=== PATIENT | male | born 1950 | race Caucasian/White ===

== ENCOUNTER 2025-01-13 09:05 | Inpatient (IN) | payer BC, OTHER ==
[~2025-01-13] VITALS: Ht 185.4 cm; Wt 109.1 kg
[~2025-01-13 09:05] MED LIST: ALPR2TAB2 PO; ATOR20TA50 PO; METF-370 PO
[2025-01-13 09:42] VITALS: PULSE 102; RESP 18; O2SAT 96
[2025-01-13 09:54] LABS: Mean Corpuscular Volume 85.8 fL (80.0-100.0); Nucleated Red Blood Cells % 0.1 %
--- NOTE | 2025-01-13 09:54 | ECG ---
[facility] Test Date: 2025-01-13 Test Time: 09:24:06 Pat Name: ENRIQUETA LEVI Department: ED Room: [facility]6T Gender: M Capacity Planner: CHELITA : 1950 Requested By: JIM RUBIO Order Number: [id number] Reading MD: Jarek Hitchcock Measurements Intervals [place] Rate: 110 P: 0 ND: 0 QRS: 30 QRSD: 82 T: 65 QT: 317 QTc: 429 Interpretive Statements Atrial fibrillation Anterior infarct, old Electronically Signed On 01-16-2025 15:03:38 PDT by Jarek Hitchcock Please click the below link to view image of tracing.
[2025-01-13 09:57] LABS: Hematocrit 51.7 % (41.0-53.0); Hemoglobin 17.8 g/dL (13.5-17.5); Mean Corpuscular Hemoglobin 29.6 pg (28.0-32.0)
[2025-01-13 10:04] LABS: Potassium 4.3 mmol/L (3.5-5.1)
[2025-01-13 10:05] LABS: Anion Gap 9 (5-15); Carbon Dioxide 29 mmol/L (20-31)
[2025-01-13 10:06] LABS: Calcium 10.2 mg/dL (8.7-10.4)
--- NOTE | 2025-01-13 10:09 | DVH ---
CLINICAL HISTORY: CP TECHNIQUE: Single view of the chest was obtained. COMPARISON: None FINDINGS: The heart size and pulmonary vasculature are normal. The lungs are clear. IMPRESSION: NO ACUTE CARDIOPULMONARY PROCESS.
[2025-01-13 10:10] LABS: BUN/Creatinine Ratio 12.3 (10.0-20.0); Blood Urea Nitrogen 14 mg/dL (9-23)
[2025-01-13 10:11] LABS: Chloride 97 mmol/L (98-107); Glucose 374 mg/dL (74-106); Sodium 135 mmol/L (136-145)
--- NOTE | 2025-01-13 10:20 | ED.PDOC ---
HPI Comments 74-year-old male who comes in with chief complaint of chest pain which started this morning. The patient states that his neighbor dropped him off because he is complaining of some pain after he ran out of his pain medications yesterday. He does has a history of pretty significant arthritis. Upon arrival, he states that the chest pain is substernal with no radiation. It is associated with some mild shortness for breath and he states that the pain is about a 5/10. He den ies any fever or chills. Chief Complaint: Chest Pain Time Seen by MD: 09:17 Reviewed Notes: Nurses Notes, Medications, Allergies (No allergies to medications) Allergies: Coded Allergies: NO KNOWN ALLERGIES (Unverified , 01/13/25) Information Source: Patient Mode of Arrival: Ambulatory Severity: Moderate Timing: Hours Duration: Since onset Prehospital treatment: None Location: Substernal Radiation: No Radiation Quality: Squeezing, Pressure Onset: At Rest Cardiac Risk Factors: Diabetes PE Risk Factors: None History of: Similar pain in past Modifying Factors: Nothing Associated Signs and Symptoms: SOB Past Medical History PAST MEDICAL HISTORY: DM, Kidney Stones, Thyroid Surgical History: Tonsillectomy Surgical History (Other): Right chest surgery, right and left hand of surgery, right elbow surgery Family History Family History: Family hx of heart julio cesar, Family hx of stroke Social History Smoker: Non-Smoker Alcohol: Denies ETOH Use Drugs: Denies Drug Use Lives In: Home Constitutional: denies: chills, diaphoresis, fatigue, fever, malaise, sweats, weakness, others EENTM: denies: blurred vision, double vision, ear bleeding, ear discharge, ear drainage, ear pain, ear ringing, eye pain, eye redness, hearing loss, mouth pain, mouth swelling, nasal discharge, nose bleeding, nose congestion, nose pain, photophobia, tearing, throat pain, throat swelling, voice changes, others Respiratory: denies: cough, hemoptysis, orthopnea, SOB at rest, shortness of breath, SOB with excertion, stridor, wheezing, others Cardiovascular: reports: chest pain; denies: dizzy spells, diaphoresis, Dyspnea on exertion, edema, irregular heart beat, left arm pain, lightheadedness, palpitations, PND, syncope, others Gastrointestinal: denies: abdomen distended, abdominal pain, blood streaked bowels, constipated, diarrhea, dysphagia, difficulty swallowing, hematemesis, melena, nausea, poor appetite, poor fluid intake, rectal bleeding, rectal pain, vomiting, others Genitourinary: denies: burning, dysuria, flank pain, frequency, hematuria, incontinence, penile discharge, penile sore, pain, testicle pain, testicle swelling, urgency, others Neurological: denies: dizziness, fainting, headache, left sided numbness, left sided weakness, numbness, paresthesia, pre-existing deficit, right sided numbness, right sided weakness, seizure, speech problems, tingling, tremors, weakness, others Musculoskeletal: denies: back pain, gout, joint pain, joint swelling, muscle pain, muscle stiffness, neck pain, others Integumetry: denies: bruises, change in color, change in hair/nails, dryness, laceration, lesions, lumps, rash, wounds, others Allergic/Immunocompromised: denies: Difficulty Healing, Frequent Infections, Hives, Itching, others Hematologic/Lymphatic: denies: anemia, blood clots, easy bleeding, easy bruising, swollen glands, others Endocrine: denies: excessive hunger, excessive sweating, excessive thirst, excessive urination, flushing, intolerance to cold, intolerance to heat, unexplained weight gain, unexplained weight loss, others Psychiatric: denies: anxiety, bipolar disorder, depression, hopeless, panic disorder, schizophrenia, sleepless, suicidal, others Physical Exam General Appearance: Moderate Distress HEENT: Normal ENT Inspection, Pharynx Normal, TMs Normal Neck: Full Range of Motion, Non-Tender, Normal, Normal Inspection Respiratory: Chest Non-Tender, Lungs Clear, No Accessory Muscle Use, No Respiratory Distress, Normal Breath Sounds Cardiovascular: Irregular, No Edema, No JVD, No Murmur, No Gallop Breast Exam: Deferred Gastrointestinal: No Organomegaly, Non Tender, No Pulsatile Mass, Normal Bowel Sounds, Soft Genitalia: Deferred Pelvic: Deferred Rectal: Deferred Extremities: No calf tenderness, Normal capillary refill, Normal inspection, Normal range of motion, Non-tender, No pedal edema Musculoskeletal : Apperance: Normal Neurologic: Alert, coil taper II-XII nml as Tested, Motor Weakness, Normal Affect, Normal Mood, No Sensory Deficits Cerebellar Function: Normal Reflexes: Normal Skin: Dry, Normal Color, Warm Lymphatic: No Adenopathy EKG EKG : Pulse Rate (adult): 110 [place]: Normal Cardiac Rhythm: Afib Block: None ST: Nonsp Was a procedure done? Was a procedure done?: No CP Differential Dx Differential Diagnosis: Angina, DE, Pulmonary Embolus Differential Diagnosis: CHF Differential Diagnosis: Esophageal reflux/spasm, Pericarditis X-Ray, Labs, Meds, VS Vital Signs Date Time Temp Pulse Resp B/P (MAP) Pulse Ox O2 Delivery O2 Flow Rate FiO2 01/13/25 10:51 92 17 121/85 01/13/25 10:50 98.7 92 18 121/85 (97) 96 98.7 01/13/25 10:37 112 01/13/25 10:20 110 01/13/25 09:42 102 18 96 Room Air* 0 21 01/13/25 09:24 110 01/13/25 09:21 97.4 102 18 130/83 (99) 96 97.4 01/13/25 09:21 97.4 102 18 130/83 96 97.4 Lab Test 01/13/25 10:38 01/13/25 09:40 Range/Units Troponin I High Sensitivity Pending 10 </=54 ng/L White Blood Count 10.8 4.4-10.8 10^3/uL Red Blood Count 6.02 H 4.5-5.90 10^6/uL Hemoglobin 17.8 H 13.5-17.5 g/dL Hematocrit 51.7 41.0-53.0 % Mean Corpuscular Volume 85.8 80.0-100.0 fL Mean Corpuscular Hemoglobin 29.6 28.0-32.0 pg Mean Corpuscular Hemoglobin Concent 34.5 32.0-36.0 g/dL Red Cell Distribution Width 14.2 11.8-14.3 % Platelet Count 211 140-450 10^3/uL Mean Platelet Volume 8.9 6.9-10.8 fL Neutrophils (%) (Auto) 74.6 37.0-80.0 % Lymphocytes (%) (Auto) 17.6 10.0-50.0 % Monocytes (%) (Auto) 6.8 0.0-12.0 % Eosinophils (%) (Auto) 0.6 0.0-7.0 % Basophils (%) (Auto) 0.4 0.0-2.0 % Neutrophils # (Auto) 8.0 1.6-8.6 10 ^3/uL Lymphocytes # (Auto) 1.9 0.4-5.4 10 ^3/uL Monocytes # (Auto) 0.7 0-1.3 10 ^3/uL Eosinophils # (Auto) 0.1 0-0.8 10 ^3/uL Basophils # (Auto) 0 0-0.2 10 ^3/uL Nucleated Red Blood Cells 0.1 % Urine Color Light-yellow Yellow Urine Clarity Clear Clear Urine pH 5.0 5.0-9.0 Urine Specific [place] 1.041 H 1.001-1.035 Urine Protein Negative Negative Urine Ketones Trace Negative Urine Blood Negative Negative /uL Urine Nitrite Negative Negative Urine Bilirubin Negative Negative Urine Urobilinogen Normal Negative mg/dL Urine Leukocyte Esterase Negative Negative /uL Urine RBC 2 0 - 3 /hpf Urine Microscopic WBC < 1 0-3 /HPF Urine Squamous Epithelial Cells Few <5 /hpf Urine Bacteria None seen None Seen /hpf Urine Glucose 4+ H Normal mg/dL Sodium Level 135 L 136-145 mmol/L Potassium Level 4.3 3.5-5.1 mmol/L Chloride Level 97 L 98-107 mmol/L Carbon Dioxide Level 29 20-31 mmol/L Anion Gap 9 5-15 Blood Urea Nitrogen 14 9-23 mg/dL Creatinine 1.14 0.700-1.30 mg/dL Glomerular Filtration Rate Calc 67 >90 mL/min BUN/Creatinine Ratio 12.3 10.0-20.0 Serum Glucose 374 H 74-106 mg/dL Calcium Level 10.2 8.7-10.4 mg/dL Current Medications Medications (Trade) Dose Ordered Sig/[facility] Route Start Time Stop Time Status Last Admin Morphine Sulfate 4 mg ONCE ONCE IV 01/13/25 10:30 01/13/25 10:31 DC 01/13/25 10:51 Ondansetron HCl (Zofran) 4 mg ONCE ONCE IV 01/13/25 10:30 01/13/25 10:31 DC 01/13/25 10:50 Chest XR: IMPRESSION: NO ACUTE CARDIOPULMONARY PROCESS. The patient's CBC is within normal limits. The chemistry panel is within normal limits. The patient's serum glucose is elevated at 374 The urine test is negative for any infection The troponin level is negative The patient is being admitted at this time A cardiology consult will be obtained. Images Reviewed?: Images reviewed and evaluated by me Time of 1ST Reevaluation: 10:19 Reevaluation 1ST: Unchanged Patient Education/Counseling: Diagnosis, Treatment, Prognosis Family Education/Counseling: No Family Present SEPSIS Sepsis Screen Date sepsis recognized/suspect: Jan 13, 2025 Time Sepsis recognized/suspect: 914 Recent Procedure: No On Antibiotic Therapy: No Respiratory Rate >20: No Heart Rate >90: Yes Temp<36 C (96.8 F) or >38.3 C: No SBP <90 or MAP <65 mmHG: No New Acute Mental Status Change: No Is the patient on CPAP, BIPAP,: No Physician Orders Chest Portable (01/13/25 09:34) Heplock Iv (01/13/25 09:34) Licensed Direct Entry Midwife (01/13/25 09:34) Blood Pressure (01/13/25 09:34) Pulse Oximetry (01/13/25 09:34) Troponin-I Hs (01/13/25 10:34) Troponin-I Hs (01/13/25 12:34) Electrocardigram (01/13/25 10:34) Electrocardigram (01/13/25 12:34) Vital Signs Date Time Temp Pulse Resp B/P (MAP) Pulse Ox O2 Delivery O2 Flow Rate FiO2 01/13/25 10:51 92 17 121/85 01/13/25 10:50 98.7 92 18 121/85 (97) 96 98.7 01/13/25 10:37 112 01/13/25 10:20 110 01/13/25 09:42 102 18 96 Room Air* 0 21 01/13/25 09:24 110 01/13/25 09:21 97.4 102 18 130/83 (99) 96 97.4 01/13/25 09:21 97.4 102 18 130/83 96 97.4 Laboratory Tests Test 01/13/25 09:40 White Blood Count 10.8 10^3/uL (4.4-10.8) Medications Medications Dose Ordered Sig/Renetta Route Start Time Stop Time Status Last Admin Dose Admin Morphine Sulfate 4 mg ONCE ONCE IV 01/13/25 10:30 01/13/25 10:31 DC 01/13/25 10:51 Ondansetron HCl 4 mg ONCE ONCE IV 01/13/25 10:30 01/13/25 10:31 DC 01/13/25 10:50 Departure 1 Departure Time of Disposition: 11:17 Impression: Primary Impression: Acute coronary syndrome Disposition: ADMITTED INPATIENT Admit to: Tele Condition: Fair Critical Care Note Critical Care Time?: Yes (55 min-critical care time only) Stability Stability form required: Yes Unstable for transfer: Telemetry monitoring (Telemetry monitoring required), ED Physician Assesment (Clinical assesment) Heart Score Heart Score: Heart Score Response (Comments) Value History Moderate Suspicious [address]-Deviation 2 Age >65 2 Risk Factors >3 or Hx ASHD 2 Troponin Normal limit 0 Total 7 I personally scribed for JIM RUBIO MD ([email or web address]) on 01/13/25 at 11:13. Electronically submitted by Kasey Grover ([email or web address]). JIM RUBIO MD Jan 13, 2025 10:20
[2025-01-13 10:34] LABS: Urine Protein, UAD Negative (Negative)
[2025-01-13] MEDS: ONDANSETRON HCL 4 MG/2 ML VIAL IV ONE (10:50)
[2025-01-13] MEDS: MORPHINE SULFATE 4 MG/ML SYR/VIAL IV ONE (10:51)
[2025-01-13] MEDS ORDERED: DEXTROSE (50%) 50ML SYRG IV PRN (14:30)
[2025-01-13] MEDS ORDERED: HYDROcodone-ACET 5/325MG TAB PO PRN (14:30)
--- NOTE | 2025-01-13 14:37 | DVHHP2 ---
History of Present Illness Reason for Visit: Chest pain History of Present Illness 74-year-old male who came in with chief complaint of chest pain starting this morning. Patient states his neighbor dropped him off because he was complaining of pain after running out of pain medications yesterday. Had a lengthy discussion with patient about his history Patient has history of severe left knee arthritis, irregular heart rhythm ( patient was never officially told what it was, but he has been told sometimes it is there and sometimes it is not) patient had stress test 1-2 years ago and it was normal per patient, also reports history of diabetes type 2, patient declined the metformin that his primary care provider had placed him on, he was taking Farxiga only. Patient was also placed on atorvastatin but he declined that medication as well after he did research on the medications. Patient states that the chest pain does make him feel a little short of breath. We are admitting patient to telemetry to monitor and treat, ER would like cardiology consult. Past Medical History DM, Kidney Stones, Thyroid Past Surgical History Right chest surgery, right and left hand of surgery, right elbow surgery Family History Family hx of heart julio cesar, Family hx of stroke Smoke: No ALCOHOL: none Drugs: None Lives: Alone Review of Systems Constitutional: No: Fever, Chills, Sweats, Weakness, Malaise, Other Eyes: No: Pain, Vision change, Conjunctivae inflammation, Eyelid inflammation, Other, Redness ENT: No: Ear pain, Ear discharge, Nose pain, Nose discharge, Nose congestion, Mouth pain, Mouth swelling, Throat pain, Throat swelling, Other Respiratory: Shortness of breath; No: Cough, Dry, SOB with excertion, Wheezing, Hemoptysis, Pleuritic Pain, Sputum, Wheezing, Other Cardiovascular: Chest Pain; No: Palpitations, Orthopnea, Paroxysmal Noc. Dys pnea, Edema, Lt Headedness, Other Gastrointestinal: No: Nausea, Vomiting, Abdominal Pain, Diarrhea, Constipation, Melena, Hematochezia, Other Genitourinary: No Dysuria, No Frequency, No Incontinence, No Hematuria, No Retention, No Other Musculoskeletal: No: other, neck pain, shoulder pain, arm pain, back pain, hand pain, leg pain, foot pain Skin: No: Rash, Lesions, Jaundice, Bruising, Other Neurological: No: Weakness, Numbness, Incoordination, Change in speech, Confusion, Seizures, Other Allergies: Coded Allergies: NO KNOWN ALLERGIES (Unverified , 01/13/25) Medications Current Medications Medications Dose Ordered Sig/Renetta Route Start Time Stop Time Status Last Admin Dose Admin Acetaminophen/ Hydrocodone Bitart 1 tab Q4HP PRN PO 01/13/25 14:30 UNV Ondansetron HCl 4 mg Q4HP PRN IV 01/13/25 14:30 UNV Docusate Sodium 100 mg BIDPRN PRN PO 01/13/25 14:30 UNV Alprazolam 0.25 mg Q12HP PRN PO 01/13/25 14:30 UNV Diagnostic Test (Pha) 1 strip ACHS 01/13/25 17:00 UNV Insulin Human Regular HS SC 01/13/25 22:00 UNV Insulin Human Regular AC SC 01/13/25 17:00 UNV Dextrose 50 ml UD PRN IV 01/13/25 14:30 UNV Exam Vital Signs Vital Signs Date Time Temp Pulse Resp B/P (MAP) Pulse Ox O2 Delivery O2 Flow Rate FiO2 01/13/25 13:53 87 16 129/90 (103) 96 01/13/25 10:50 98.7 98.7 01/13/25 09:42 Room Air* 0 21 General Appearance: Alert, Oriented X3, Cooperative, mild distress HEENT: Atraumatic, PERRLA, Mucous membr. moist/pink Respiratory: Clear to auscultation, Normal air movement Cardiovascular: Regular rate, Normal S1, Normal S2, No murmurs Abdominal: Normal bowel sounds, Soft, No tenderness, No hepatospenomegaly, No masses Extremities: No clubbing, No cyanosis, No edema, Normal pulses, No tenderness/swelling Skin: No rashes, No breakdown, No significant lesion Neuro: Normal gait, Normal speech, Strength at 5/5 X4 ext, Normal tone, Sensation intact, Cranial nerves 3-12 NL, Reflexes 2+ Psych/Mental Status: Mental status NL, Mood NL Labs/Xrays Reviewed Labs Test 01/13/25 13:07 01/13/25 09:40 Range/Units Troponin I High Sensitivity 8 </=54 ng/L White Blood Count 10.8 4.4-10.8 10^3/uL Red Blood Count 6.02 H 4.5-5.90 10^6/uL Hemoglobin 17.8 H 13.5-17.5 g/dL Hematocrit 51.7 41.0-53.0 % Mean Corpuscular Volume 85.8 80.0-100.0 fL Mean Corpuscular Hemoglobin 29.6 28.0-32.0 pg Mean Corpuscular Hemoglobin Concent 34.5 32.0-36.0 g/dL Red Cell Distribution Width 14.2 11.8-14.3 % Platelet Count 211 140-450 10^3/uL Mean Platelet Volume 8.9 6.9-10.8 fL Neutrophils (%) (Auto) 74.6 37.0-80.0 % Lymphocytes (%) (Auto) 17.6 10.0-50.0 % Monocytes (%) (Auto) 6.8 0.0-12.0 % Eosinophils (%) (Auto) 0.6 0.0-7.0 % Basophils (%) (Auto) 0.4 0.0-2.0 % Neutrophils # (Auto) 8.0 1.6-8.6 10 ^3/uL Lymphocytes # (Auto) 1.9 0.4-5.4 10 ^3/uL Monocytes # (Auto) 0.7 0-1.3 10 ^3/uL Eosinophils # (Auto) 0.1 0-0.8 10 ^3/uL Basophils # (Auto) 0 0-0.2 10 ^3/uL Nucleated Red Blood Cells 0.1 % Urine Color Light-yellow Yellow Urine Clarity Clear Clear Urine pH 5.0 5.0-9.0 Urine Specific [place] 1.041 H 1.001-1.035 Urine Protein Negative Negative Urine Ketones Trace Negative Urine Blood Negative Negative /uL Urine Nitrite Negative Negative Urine Bilirubin Negative Negative Urine Urobilinogen Normal Negative mg/dL Urine Leukocyte Esterase Negative Negative /uL Urine RBC 2 0 - 3 /hpf Urine Microscopic WBC < 1 0-3 /HPF Urine Squamous Epithelial Cells Few <5 /hpf Urine Bacteria None seen None Seen /hpf Urine Glucose 4+ H Normal mg/dL Sodium Level 135 L 136-145 mmol/L Potassium Level 4.3 3.5-5.1 mmol/L Chloride Level 97 L 98-107 mmol/L Carbon Dioxide Level 29 20-31 mmol/L Anion Gap 9 5-15 Blood Urea Nitrogen 14 9-23 mg/dL Creatinine 1.14 0.700-1.30 mg/dL Glomerular Filtration Rate Calc 67 >90 mL/min BUN/Creatinine Ratio 12.3 10.0-20.0 Serum Glucose 374 H 74-106 mg/dL Calcium Level 10.2 8.7-10.4 mg/dL SEPSIS Sepsis Screen Date sepsis recognized/suspect: Jan 13, 2025 Time Sepsis recognized/suspect: 914 Recent Procedure: No On Antibiotic Therapy: No Respiratory Rate >20: No Heart Rate >90: Yes Temp<36 C (96.8 F) or >38.3 C: No SBP <90 or MAP <65 mmHG: No New Acute Mental Status Change: No Is the patient on CPAP, BIPAP,: No Physician Orders Chest Portable (01/13/25 09:34) Heplock Iv (01/13/25 09:34) Geographic Information System Analyst (01/13/25 09:34) Blood Pressure (01/13/25 09:34) Pulse Oximetry (01/13/25 09:34) Electrocardigram (01/13/25 10:34) Electrocardigram (01/13/25 12:34) Hemoglobin A1c (01/13/25 14:18) Admit (01/13/25 14:18) Allergies (01/13/25 14:18) Code Status (01/13/25 14:18) Hydrocodone-Acet 5/325mg Tab (Arnett 5/32 (01/13/25 14:30) Docusate Sodium Capsule (Colace Capsule) (01/13/25 14:30) Complete Blood Count (01/14/25 04:00) Comprehensive Metabolic Panel (01/14/25 04:00) Cardiac Diet-2gna,Lofat,Lochol (01/13/25 Dinner) Condition: Fair (01/13/25 14:18) BRP (01/13/25 14:18) Alprazolam Tablet (Xanax Tablet) (01/13/25 14:30) Glucose Blood (Accu-Chek Comfort Curve T (01/13/25 17:00) Insulin R (Human) (Insulin R) (01/13/25 22:00) Insulin R (Human) (Insulin R) (01/13/25 17:00) Dextrose 50% Syringe (01/13/25 14:30) Ondansetron Hcl (Zofran) (01/13/25 14:30) Vital Signs Date Time Temp Pulse Resp B/P (MAP) Pulse Ox O2 Delivery O2 Flow Rate FiO2 01/13/25 13:53 87 16 129/90 (103) 96 01/13/25 11:54 95 16 128/83 (98) 95 01/13/25 11:39 92 17 121/85 01/13/25 10:51 92 17 121/85 01/13/25 10:50 98.7 92 18 121/85 (97) 96 98.7 01/13/25 10:37 112 01/13/25 10:20 110 01/13/25 09:42 102 18 96 Room Air* 0 21 01/13/25 09:24 110 01/13/25 09:21 97.4 102 18 130/83 (99) 96 97.4 01/13/25 09:21 97.4 102 18 130/83 96 97.4 Laboratory Tests Test 01/13/25 09:40 White Blood Count 10.8 10^3/uL (4.4-10.8) Medications Medications Dose Ordered Sig/Renetta Route Start Time Stop Time Status Last Admin Dose Admin Morphine Sulfate 4 mg ONCE ONCE IV 01/13/25 10:30 01/13/25 10:31 DC 01/13/25 10:51 4 MG Ondansetron HCl 4 mg ONCE ONCE IV 01/13/25 10:30 01/13/25 10:31 DC 01/13/25 10:50 4 MG Assessment/Plan Assessment/Plan ACS ACS protocol Admit to ekg monitor overnight Consult cardiology Cardiac diet Pain medication p.r.n. Nausea medication p.r.n. DM type 2 Insulin sliding scale moderate Accu-Cheks a.c. HS PPX VTE prophylaxis not indicated GI prophylaxis not indicated Plan discussed with: Patient My Orders Orders - MARY PANDEY STORE PROMOTER Procedure Category Date Status Time Hemoglobin A1c LAB 01/13/25 Logged 14:18 Admit ADMIT 01/13/25 Transmitted 14:18 Allergies [place] 01/13/25 In Process 14:18 Code Status CODE 01/13/25 Transmitted 14:18 Hydrocodone-Acet PHA 01/13/25 Logged 5/325mg Tab (Arnett 14:30 Docusate Sodium PHA 01/13/25 Logged Capsule (Colace 14:30 Complete Blood Count LAB 01/14/25 Verified 04:00 Comprehensive LAB 01/14/25 Verified Metabolic Panel 04:00 Cardiac DIET 01/13/25 Transmitted Diet-2gna,Lofat,Lochol Dinner Condition: Fair [place] 01/13/25 In Process 14:18 BRP [place] 01/13/25 In Process 14:18 Alprazolam Tablet PHA 01/13/25 Logged (Xanax Tablet) 14:30 Glucose Blood PHA 01/13/25 Logged (Accu-Chek Comfort 17:00 Insulin R (Human) PHA 01/13/25 Logged (Insulin R) 22:00 Insulin R (Human) PHA 01/13/25 Logged (Insulin R) 17:00 Dextrose 50% Syringe PHA 01/13/25 Logged 14:30 Ondansetron Hcl PHA 01/13/25 Logged (Zofran) 14:30 Date of Service: Jan 13, 2025 Billing Provider: MARY PANDEY Common Visit Codes: [id number] INP/OBS CARE (HIGH) MARY PANDEY Jan 13, 2025 14:37
[2025-01-13] MEDS: ACCU-CHEK COMFORT CURVE STRIP VI SCH (17:40)
[2025-01-13] MEDS: InsuLIN REG 1unit/0.01ml Soln (100units/ml) SC SCH ×2 (17:41→22:56)
[2025-01-13] MEDS: MORPHINE SULFATE INJ 2 MG/ml SYRG IV PRN (18:25)
[2025-01-13] MEDS: ONDANSETRON HCL 4 MG/2 ML VIAL IV PRN (18:25)
[2025-01-13 22:12] VITALS: BP 131/93; PULSE 88; RESP 18; TEMP 97; O2SAT 95
[2025-01-13] MEDS ORDERED: OXY5T PO (23:09)
[2025-01-13] MEDS ORDERED: DAPA1TAB4 PO (23:10)
[2025-01-14] VITALS (9 sets, daily range): BP systolic 101–115; BP diastolic 60–82; PULSE 74–90; RESP 16–20; TEMP 96.3–98; O2SAT 95–98
[2025-01-14] MEDS: ALPRAZolam 0.25 MG TAB PO PRN (00:28)
[2025-01-14 07:36] LABS: Hematocrit 48.2 % (41.0-53.0); Hemoglobin 16.7 g/dL (13.5-17.5); Mean Corpuscular Hemoglobin 29.7 pg (28.0-32.0); Mean Corpuscular Volume 85.7 fL (80.0-100.0); Nucleated Red Blood Cells % 0.1 %
[2025-01-14 07:55] LABS: Alanine Aminotransferase 22 U/L (7-40); Albumin 3.9 g/dL (3.2-4.8); Alkaline Phosphatase 67 U/L (46-116); Anion Gap 6 (5-15); BUN/Creatinine Ratio 15.5 (10.0-20.0); Blood Urea Nitrogen 15 mg/dL (9-23); Calcium 9.2 mg/dL (8.7-10.4); Chloride 102 mmol/L (98-107); Glucose 102 mg/dL (74-106); Potassium 4.5 mmol/L (3.5-5.1); Sodium 140 mmol/L (136-145); Total Protein 6.9 g/dL (5.7-8.2)
[2025-01-14 07:56] LABS: Bilirubin, Total 0.9 mg/dL (0.2-1.0)
[2025-01-14 07:59] LABS: Carbon Dioxide 32 mmol/L (20-31)
--- NOTE | 2025-01-14 10:33 | ECG ---
[facility] Test Date: 2025-01-13 Test Time: 10:37:05 Pat Name: ENRIQUETA LEVI Department: Room: [facility]6T A Gender: M Testing Coordinator: RINKU : 1950 Requested By: JIM RUBIO Order Number: [id number] Reading MD: Jarek Hitchcock Measurements Intervals [place] Rate: 112 P: 0 [place]: 0 QRS: 0 QRSD: 81 T: 46 QT: 318 QTc: 434 Interpretive Statements Atrial fibrillation Anterior infarct, old Electronically Signed On 01-16-2025 15:03:44 PDT by Jarek Hitchcock Please click the below link to view image of tracing.
--- NOTE | 2025-01-14 18:38 | DVHPN2 ---
Subjective I am assuming the care of the patient was from today onwards. Patient is here for generalized body pain has been as chest pain. Patient says that he ran out of physical oxycodone few days ago Changes from previous H/P or p: No Changes Eyes: No Pain, No Vision change, No Conjunctivae inflammation, No Eyelid inflammation, No Other, No Redness ENT: No Ear pain, No Ear discharge, No Nose pain, No Nose discharge, No Nose congestion, No Mouth pain, No Mouth swelling, No Throat pain, No Throat swelling, No Other Cardiovascular: Chest Pain; No Palpitations, No Orthopnea, No Paroxysmal Noc. Dyspnea, No Edema, No Lt Headedness, No Other Respiratory: No Cough, No Dry; Shortness of breath; No SOB with excertion, No Wheezing, No Hemoptysis, No Pleuritic Pain, No Sputum, No Other Gastrointestinal: No Nausea, No Vomiting, No Abdominal Pain, No Diarrhea, No Constipation, No Melena, No Hematochezia, No Other Genitourinary: No Dysuria, No Frequency, No Incontinence, No Hematuria, No Retention, No Other Musculoskeletal: No other, No neck pain, No shoulder pain, No arm pain, No back pain, No hand pain, No leg pain, No foot pain Skin: No Rash, No Lesions, No Jaundice, No Bruising, No Other Objective Vitals Vital Signs Date Time Temp Pulse Resp B/P (MAP) Pulse Ox O2 Delivery O2 Flow Rate FiO2 01/14/25 16:35 97.5 77 18 104/78 (87) 95 97.5 01/14/25 08:00 Room Air* 0 21 Intake/Output Intake and Output 01/14/25 07:00 Intake Total 100 ml Balance 100 ml Intake Oral 100 ml # Voids 1 Exam HEENT pupils are reactive Neck is supple CV is S1-S2 regular rate and rhythm Respiratory are clear GI posterior bowel sound Extremity no edema 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 Medications Current Medications Medications Dose Ordered Sig/Renetta Route Start Time Stop Time Status Last Admin Dose Admin Ondansetron HCl 4 mg Q4HP PRN IV 01/13/25 14:30 01/14/25 09:57 4 MG Docusate Sodium 100 mg BIDPRN PRN PO 01/13/25 14:30 Alprazolam 0.25 mg Q12HP PRN PO 01/13/25 14:30 01/14/25 00:28 0.25 MG Diagnostic Test (Pha) 1 strip ACHS 01/13/25 17:00 01/14/25 16:13 1 STRIP Insulin Human Regular HS SC 01/13/25 22:00 01/13/25 22:56 6 UNITS Insulin Human Regular AC SC 01/13/25 17:00 01/14/25 17:00 9 UNITS Dextrose 50 ml UD PRN IV 01/13/25 14:30 Morphine Sulfate 2 mg Q4HPRN PRN IV 01/13/25 16:30 01/14/25 14:49 2 MG Oxycodone HCl 30 mg Q12HR PO 01/14/25 22:00 Laboratory Results Laboratory Tests 01/14/25 07:11 Chemistry Test 01/14/25 07:11 Albumin 3.9 g/dL (3.2-4.8) Calcium Level 9.2 mg/dL (8.7-10.4) Total Protein 6.9 g/dL (5.7-8.2) LFT Test 01/14/25 07:11 Alanine Aminotransferase (ALT) 22 U/L (7-40) Alkaline Phosphatase 67 U/L (46-116) Aspartate Amino Transferase (AST) 19 U/L (13-40) Total Bilirubin 0.9 mg/dL (0.2-1.0) Urinalysis Test 01/13/25 09:40 Urine Color Light-yellow (Yellow) Urine Clarity Clear (Clear) Urine pH 5.0 (5.0-9.0) Urine Specific [place] 1.041 (1.001-1.035) Urine Protein Negative (Negative) Urine Ketones Trace (Negative) Urine Blood Negative /uL (Negative) Urine Nitrite Negative (Negative) Urine Bilirubin Negative (Negative) Urine Urobilinogen Normal mg/dL (Negative) Urine Leukocyte Esterase Negative /uL (Negative) Urine RBC 2 /hpf (0 - 3) Urine Microscopic WBC < 1 /HPF (0-3) Urine Squamous Epithelial Cells Few /hpf (<5) Urine Bacteria None seen /hpf (None Seen) Urine Glucose 4+ mg/dL (Normal) H Assessment/Plan Assessment/Plan 74-year-old male with a known history of chronic pain syndrome, generalized osteoarthritis of the multiple joints, anxiety disorder, diabetes mellitus type 2 he is here for chest pain and generalized body pain. 1. Chest pain rule out acute [place] 2. Generalized body pain with a known history of chronic pain syndrome 3. Chronic narcotic dependency 4. Anxiety disorder 5. Diabetes mellitus type 2 -resume oxycodone, close monitoring on telemetry, discharge plan. Plan discussed with: Patient My Orders Orders - LUIS PETERSON MD Procedure Category Date Status Time Pt Request For Service PT 01/14/25 Logged 15:09 Oxycodone Er Tablet PHA 01/14/25 In Process (Oxycontin Er Tablet 22:00 Date of Service: Jan 14, 2025 Billing Provider: LUIS PETERSON MD Common Visit Codes: [id number] INP/OBS CARE(MOD) LUIS PETERSON MD Jan 14, 2025 18:38
[2025-01-15] VITALS (10 sets, daily range): BP systolic 101–141; BP diastolic 67–92; PULSE 14–98; RESP 14–18; TEMP 97.6–98.1; O2SAT 95–98
[2025-01-15] MEDS: DOCUSATE SOD 100 MG CAP PO PRN (09:08)
--- NOTE | 2025-01-15 16:47 | DVHPN2 ---
Subjective Patient is here for generalized body pain has been as chest pain. Patient says that he ran out of oxycodone few days ago. Changes from previous H/P or p: No Changes Eyes: No Pain, No Vision change, No Conjunctivae inflammation, No Eyelid inflammation, No Other, No Redness ENT: No Ear pain, No Ear discharge, No Nose pain, No Nose discharge, No Nose congestion, No Mouth pain, No Mouth swelling, No Throat pain, No Throat swelling, No Other Cardiovascular: Chest Pain; No Palpitations, No Orthopnea, No Paroxysmal Noc. Dyspnea, No Edema, No Lt Headedness, No Other Respiratory: No Cough, No Dry; Shortness of breath; No SOB with excertion, No Wheezing, No Hemoptysis, No Pleuritic Pain, No Sputum, No Other Gastrointestinal: No Nausea, No Vomiting, No Abdominal Pain, No Diarrhea, No Constipation, No Melena, No Hematochezia, No Other Genitourinary: No Dysuria, No Frequency, No Incontinence, No Hematuria, No Retention, No Other Musculoskeletal: No other, No neck pain, No shoulder pain, No arm pain, No back pain, No hand pain, No leg pain, No foot pain Skin: No Rash, No Lesions, No Jaundice, No Bruising, No Other Objective Vitals Vital Signs Date Time Temp Pulse Resp B/P (MAP) Pulse Ox O2 Delivery O2 Flow Rate FiO2 01/15/25 16:41 98.1 81 16 125/92 (103) 97 98.1 01/15/25 08:00 Room Air* 0 21 Intake/Output Intake and Output 01/15/25 07:00 Intake Total 1534 ml Balance 1534 ml Intake Oral 1534 ml # Voids 3 Exam HEENT pupils are reactive Neck is supple CV is S1-S2 regular rate and rhythm Respiratory are clear GI posterior bowel sound Extremity no edema 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 Medications Current Medications Medications Dose Ordered Sig/Renetta Route Start Time Stop Time Status Last Admin Dose Admin Ondansetron HCl 4 mg Q4HP PRN IV 01/13/25 14:30 01/15/25 16:05 4 MG Docusate Sodium 100 mg BIDPRN PRN PO 01/13/25 14:30 01/15/25 09:08 100 MG Alprazolam 0.25 mg Q12HP PRN PO 01/13/25 14:30 01/15/25 02:45 0.25 MG Diagnostic Test (Pha) 1 strip ACHS 01/13/25 17:00 01/15/25 16:19 1 STRIP Insulin Human Regular HS SC 01/13/25 22:00 01/14/25 23:10 3 UNITS Insulin Human Regular AC SC 01/13/25 17:00 01/15/25 16:33 6 UNITS Dextrose 50 ml UD PRN IV 01/13/25 14:30 Morphine Sulfate 2 mg Q4HPRN PRN IV 01/13/25 16:30 01/15/25 16:06 2 MG Oxycodone HCl 30 mg Q12HR PO 01/14/25 22:00 01/15/25 09:13 30 MG Laboratory Results Laboratory Tests 01/14/25 07:11 Urinalysis Test 01/13/25 09:40 Urine Color Light-yellow (Yellow) Urine Clarity Clear (Clear) Urine pH 5.0 (5.0-9.0) Urine Specific [place] 1.041 (1.001-1.035) Urine Protein Negative (Negative) Urine Ketones Trace (Negative) Urine Blood Negative /uL (Negative) Urine Nitrite Negative (Negative) Urine Bilirubin Negative (Negative) Urine Urobilinogen Normal mg/dL (Negative) Urine Leukocyte Esterase Negative /uL (Negative) Urine RBC 2 /hpf (0 - 3) Urine Microscopic WBC < 1 /HPF (0-3) Urine Squamous Epithelial Cells Few /hpf (<5) Urine Bacteria None seen /hpf (None Seen) Urine Glucose 4+ mg/dL (Normal) H Assessment/Plan Assessment/Plan 74-year-old male with a known history of chronic pain syndrome, generalized osteoarthritis of the multiple joints, anxiety disorder, diabetes mellitus type 2 he is here for chest pain and generalized body pain. 1. Chest pain ruled out acute [place] 2. Generalized body pain with a known history of chronic pain syndrome 3. Chronic narcotic dependency 4. Anxiety disorder 5. Diabetes mellitus type 2 -resume oxycodone, close monitoring on telemetry, discharge plan. Plan discussed with: Patient Date of Service: Jan 15, 2025 Billing Provider: LUIS PETERSON MD Common Visit Codes: [id number] INP/OBS CARE(MOD) LUIS PETERSON MD Jan 15, 2025 16:47
[2025-01-16] VITALS (7 sets, daily range): BP systolic 114–133; BP diastolic 81–86; PULSE 81–98; RESP 16–18; TEMP 97.6–98.3; O2SAT 95–98
[2025-01-16] MEDS ORDERED: OXY20CRT PO (16:20)
--- NOTE | 2025-01-16 16:25 | DVHDS2 ---
Discharge Summary Date of Admission Jan 13, 2025 at 14:18 Date of Discharge: Jan 16, 2025 Labs/Diagnostic Data: Laboratory Results Test 01/16/25 12:13 01/14/25 07:11 01/13/25 13:07 01/13/25 09:40 POC Glucose 240 mg/dl (70-106) White Blood Count 10.4 10^3/uL (4.4-10.8) Red Blood Count 5.63 10^6/uL (4.5-5.90) Hemoglobin 16.7 g/dL (13.5-17.5) Hematocrit 48.2 % (41.0-53.0) Mean Corpuscular Volume 85.7 fL (80.0-100.0) Mean Corpuscular Hemoglobin 29.7 pg (28.0-32.0) Mean Corpuscular Hemoglobin Concent 34.6 g/dL (32.0-36.0) Red Cell Distribution Width 14.3 % (11.8-14.3) Platelet Count 187 10^3/uL (140-450) Mean Platelet Volume 8.4 fL (6.9-10.8) Neutrophils (%) (Auto) 63.1 % (37.0-80.0) Lymphocytes (%) (Auto) 24.8 % (10.0-50.0) Monocytes (%) (Auto) 9.8 % (0.0-12.0) Eosinophils (%) (Auto) 1.9 % (0.0-7.0) Basophils (%) (Auto) 0.4 % (0.0-2.0) Neutrophils # (Auto) 6.5 10 ^3/uL (1.6-8.6) Lymphocytes # (Auto) 2.6 10 ^3/uL (0.4-5.4) Monocytes # (Auto) 1.0 10 ^3/uL (0-1.3) Eosinophils # (Auto) 0.2 10 ^3/uL (0-0.8) Basophils # (Auto) 0 10 ^3/uL (0-0.2) Nucleated Red Blood Cells 0.1 % Sodium Level 140 mmol/L (136-145) Potassium Level 4.5 mmol/L (3.5-5.1) Chloride Level 102 mmol/L (98-107) Carbon Dioxide Level 32 mmol/L (20-31) Anion Gap 6 (5-15) Blood Urea Nitrogen 15 mg/dL (9-23) Creatinine 0.97 mg/dL (0.700-1.30) Glomerular Filtration Rate Calc 81 mL/min (>90) BUN/Creatinine Ratio 15.5 (10.0-20.0) Serum Glucose 102 mg/dL (74-106) Calcium Level 9.2 mg/dL (8.7-10.4) Total Bilirubin 0.9 mg/dL (0.2-1.0) Aspartate Amino Transferase (AST) 19 U/L (13-40) Alanine Aminotransferase (ALT) 22 U/L (7-40) Alkaline Phosphatase 67 U/L (46-116) Total Protein 6.9 g/dL (5.7-8.2) Albumin 3.9 g/dL (3.2-4.8) Troponin I High Sensitivity 8 ng/L (</=54) Urine Color Light-yellow (Yellow) Urine Clarity Clear (Clear) Urine pH 5.0 (5.0-9.0) Urine Specific [place] 1.041 (1.001-1.035) Urine Protein Negative (Negative) Urine Ketones Trace (Negative) Urine Blood Negative /uL (Negative) Urine Nitrite Negative (Negative) Urine Bilirubin Negative (Negative) Urine Urobilinogen Normal mg/dL (Negative) Urine Leukocyte Esterase Negative /uL (Negative) Urine RBC 2 /hpf (0 - 3) Urine Microscopic WBC < 1 /HPF (0-3) Urine Squamous Epithelial Cells Few /hpf (<5) Urine Bacteria None seen /hpf (None Seen) Urine Glucose 4+ mg/dL (Normal) Hemoglobin A1c 12.8 % A1C (<5.7) Other Laboratory Tests 01/14/25 07:11 Brief Hx & Hospital Course: 74-year-old male with a known history of chronic pain syndrome, chronic narcotic dependency currently taking oxycodone 30 mg t.i.d., generalized osteoarthritis of the multiple joints, anxiety disorder, diabetes mellitus type 2 he is here for chest pain and generalized body pain. Patient was eventually admitted for pain management. Patient's troponins are negative, ruled out acute [place]. patient possibly chest pain is costochondritis and also have generalized body pain secondary to chronic osteoarthritis of the multiple joints. Patient was given oxycodone currently pain is better controlled and he is requesting to go home. I gave him a prescription of 14 tablets only of oxycodone 20 mg b.i.d. p.r.n.. Patient needs to call his primary physician as well as hand paint mixer for the more prescription. Patient does have chronic narcotic dependency need to be tapered off outpatient with the PCP. No driving, no signing legal documents, no playing on machinery while on narcotics. Condition at Discharge: Stable Final Diagnosis/Problems List 74-year-old male with a known history of chronic pain syndrome, generalized osteoarthritis of the multiple joints, anxiety disorder, diabetes mellitus type 2 he is here for chest pain and generalized body pain. 1. Chest pain ruled out acute [place] 2. Generalized body pain with a known history of chronic pain syndrome 3. Chronic narcotic dependency 4. Anxiety disorder 5. Diabetes mellitus type 2 Discharge Disposition: Home SNF Discharge Will this Physician continue t: No Discharge Instruct/Medications Diet: Cardiac 2g Na,low cholest Activity: See Comment Activity comment: No driving, no playing on machinery, no signing legal documents while on narcotics. Follow Up/Referral: Follow up with the PCP in 1-2 weeks Follow up with the your hand paint mixer in less than one week. Medications: Oxycodone as prescribed. 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, #2 SPRAY Oxycodone Hcl (OxyCONTIN ER Tablet) 20 Mg Tb 1 TAB PO BID PRN, #14 TAB Continued Medications: Alprazolam (Xanax) 2 Mg Tab 2 MG PO, TAB Dapagliflozin Propanediol (Farxiga) 10 Mg Tab 5 MG PO DAILY, TAB Discontinued Medications: Oxycodone Hcl (Oxycodone Hcl) 5 Mg Tb 30 MG PO, TAB Scheduled Dapagliflozin Propanediol (Farxiga), 5 MG PO DAILY, (Reported) Naloxone HCl (Narcan), 4 MG NA SENIOR NETWORK ENGINEER Scheduled PRN Oxycodone Hcl (OxyCONTIN ER Tablet), 1 TAB PO BID PRN Miscellaneous Medications Alprazolam (Xanax), 2 MG PO, (Reported) Oxycodone Hcl (Oxycodone Hcl), 30 MG PO, (Reported) Discharge Statement: "Patient was advised to return to the ER or call 911 if any headaches, dizziness, shortness of breath, chest pain, abdominal pain, bleeding, fevers, or worsening of medical condition. Patient was counseled about treatment plan, medications, possible side effects, patientverbalized understanding. All questions were answered to the best of my ability. This discharge took greater then 30 minutes in planning, reviewing documentation, counseling the patient, and discussing with other team members." ASSESSMENT ASSESSMENT Assessment 74-year-old male with a known history of chronic pain syndrome, generalized osteoarthritis of the multiple joints, anxiety disorder, diabetes mellitus type 2 he is here for chest pain and generalized body pain. 1. Chest pain ruled out acute [place] 2. Generalized body pain with a known history of chronic pain syndrome 3. Chronic narcotic dependency 4. Anxiety disorder 5. Diabetes mellitus type 2 Date of Service: Jan 16, 2025 Billing Provider: LUIS PETERSON MD Common Visit Codes: [id number] DISCH DAY >30min LUIS PETERSON MD Jan 16, 2025 16:25
[2025-01-16] MEDS ORDERED: NALO4SPR2 (16:26)
--- NOTE | 2025-01-20 13:25 | ECG ---
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
== END 2025-01-16 17:38 | disposition home or self-care (01) | DRG 206 ==
LOC: ER 09:05 → OVERFLOW 14:18 → TELE-WESTW 22:30
PROVIDERS: ADMIT Internal Medicine; ATTEND Internal Medicine
DX: M94.0 Chondrocostal junction syndrome [Tietze] (principal); F11.20 Opioid dependence, uncomplicated; E11.65 Type 2 diabetes mellitus with hyperglycemia; G89.4 Chronic pain syndrome; F41.9 Anxiety disorder, unspecified; Z82.3 Family history of stroke; Z87.442 Personal history of urinary calculi
CPT/HCPCS: 36415; 71045; 80048; 80053; 81001; 82962; 83036; 84484; 85025; 93005; 96374; 96375; 97110; 97116; 97163; 99291; G0378; J1815; J2405

== ENCOUNTER 2025-01-19 10:29 | Inpatient (IN) | payer BC ==
[~2025-01-19] VITALS: Ht 185.4 cm; Wt 108.0 kg
[~2025-01-19 10:29] MED LIST changes: +DAPA1TAB4 PO; +NALO4SPR2; +OXY20CRT PO
--- NOTE | 2025-01-19 11:06 | ED.PDOC ---
History of Present Illness HPI Comments 74-year-old male presents to the ER with prior medical history of diabetes, kidney stones, thyroid, chronic pain (early on oxycodone and Xanax): Surgical history of right sided chest surgery, tonsil technique, bilateral hand surgery, right elbow surgery and the chief complaint of chest pain. Patient was found by the physician's parking lot barely able to walk and talk. Patient was taken to the ER in a wheelchair due from the patient stating he had pressure-like chest pain to the sternal area for 90 minutes and has shortness a breath with weakness. Denies chills, fever, N/V/D. No other associated symptoms, modifiers, recent injuries or sick contacts present at this time. 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, #2 SPRAY Prov:LUIS PETERSON MD 01/16/25 Oxycodone Hcl (OxyCONTIN ER Tablet) 20 Mg Tb, 1 TAB PO BID PRN, #14 TAB Prov:LUIS PETERSON MD 01/16/25 Reported Medications Dapagliflozin Propanediol (Farxiga) 10 Mg Tab, 5 MG PO DAILY, TAB 01/13/25 Alprazolam (Xanax) 2 Mg Tab, 2 MG PO, TAB 01/13/25 Discontinued Reported Medications Oxycodone Hcl (OXYCODONE HCL) 5 Mg Tb, 30 MG PO, TAB 01/13/25 Information Source: Patient Mode of Arrival: Wheelchair Severity: Moderate Timing: Minutes Duration: Since onset, Minutes Prehospital treatment: None Past Medical History PAST MEDICAL HISTORY: DM, Kidney Stones, Thyroid Past Medical History (Other): Chronic pain (currently on oxycodone and Xanax) Surgical History: Tonsillectomy Surgical History (Other): Right-sided chest surgery, bilateral hand surgery, right elbow surgery Family History Family History: Reviewed,noncontributory to illness, Unknown Social History Smoker: Non-Smoker Alcohol: Denies ETOH Use Drugs: Denies Drug Use Lives In: Home Constitutional: reports: weakness; denies: chills, diaphoresis, fatigue, fever, malaise, sweats, others EENTM: denies: blurred vision, double vision, ear bleeding, ear discharge, ear drainage, ear pain, ear ringing, eye pain, eye redness, hearing loss, mouth pain, mouth swelling, nasal discharge, nose bleeding, nose congestion, nose pain, photophobia, tearing, throat pain, throat swelling, voice changes, others Respiratory: reports: shortness of breath; denies: cough, hemoptysis, orthopnea, SOB at rest, SOB with excertion, stridor, wheezing, others Cardiovascular: reports: chest pain; denies: dizzy spells, diaphoresis, Dyspnea on exertion, edema, irregular heart beat, left arm pain, lightheadedness, palpitations, PND, syncope, others Gastrointestinal: denies: abdomen distended, abdominal pain, blood streaked bowels, constipated, diarrhea, dysphagia, difficulty swallowing, hematemesis, melena, nausea, poor appetite, poor fluid intake, rectal bleeding, rectal pain, vomiting, others Genitourinary: denies: burning, dysuria, flank pain, frequency, hematuria, inc ontinence, penile discharge, penile sore, pain, testicle pain, testicle swelling, urgency, others Neurological: denies: dizziness, fainting, headache, left sided numbness, left sided weakness, numbness, paresthesia, pre-existing deficit, right sided numbness, right sided weakness, seizure, speech problems, tingling, tremors, weakness, others Musculoskeletal: denies: back pain, gout, joint pain, joint swelling, muscle pain, muscle stiffness, neck pain, others Integumetry: denies: bruises, change in color, change in hair/nails, dryness, laceration, lesions, lumps, rash, wounds, others Allergic/Immunocompromised: denies: Difficulty Healing, Frequent Infections, Hives, Itching, others Hematologic/Lymphatic: denies: anemia, blood clots, easy bleeding, easy bruising, swollen glands, others Endocrine: denies: excessive hunger, excessive sweating, excessive thirst, excessive urination, flushing, intolerance to cold, intolerance to heat, unexplained weight gain, unexplained weight loss, others Psychiatric: denies: anxiety, bipolar disorder, depression, hopeless, panic disorder, schizophrenia, sleepless, suicidal, others All Other Systems: Reviewed and Negative Physical Exam General Appearance: Moderate Distress, Normal HEENT: Normal ENT Inspection, Pharynx Normal, TMs Normal Neck: Full Range of Motion, Non-Tender, Normal, Normal Inspection Respiratory: Chest Non-Tender, Lungs Clear, No Accessory Muscle Use, No Respiratory Distress, Normal Breath Sounds Cardiovascular: Irregular, No Edema, No JVD, No Murmur, No Gallop, Normal Peripheral Pulses, Tachycardia Breast Exam: Deferred Gastrointestinal: No Organomegaly, Non Tender, No Pulsatile Mass, Normal Bowel Sounds, Soft Genitalia: Deferred Pelvic: Deferred Rectal: Deferred Extremities: No calf tenderness, Normal capillary refill, Normal inspection, Normal range of motion, Non-tender, No pedal edema Musculoskeletal : Apperance: Normal Neurologic: Alert, stogy roller II-XII nml as Tested, No Motor Deficits, Normal Affect, Normal Mood, No Sensory Deficits Cerebellar Function: Normal Reflexes: Normal Skin: Dry, Normal Color, Warm Peripheral Pulses: 3+ Radial (R), 3+ Radial (L) Lymphatic: No Adenopathy Was a procedure done? Was a procedure done?: No EKG EKG : Pulse Rate (adult): 136 [place]: Normal Cardiac Rhythm: Afib Block: None Hypertrophy: None ST: Normal Differential Dx Considerations may include: Atrial fibrillation Electrolyte imbalance X-Ray, Labs, Meds, VS Vital Signs Date Time Temp Pulse Resp B/P (MAP) Pulse Ox O2 Delivery O2 Flow Rate FiO2 01/19/25 11:42 121 01/19/25 11:06 136 01/19/25 10:34 136 01/19/25 10:31 98.7 130 22 118/87 98 98.7 Lab Test 01/19/25 11:52 01/19/25 10:59 Range/Units Troponin I High Sensitivity Pending 20 </=54 ng/L White Blood Count 9.9 4.4-10.8 10^3/uL Red Blood Count 5.67 4.5-5.90 10^6/uL Hemoglobin 17.0 13.5-17.5 g/dL Hematocrit 49.0 41.0-53.0 % Mean Corpuscular Volume 86.3 80.0-100.0 fL Mean Corpuscular Hemoglobin 29.9 28.0-32.0 pg Mean Corpuscular Hemoglobin Concent 34.7 32.0-36.0 g/dL Red Cell Distribution Width 14.3 11.8-14.3 % Platelet Count 208 140-450 10^3/uL Mean Platelet Volume 8.5 6.9-10.8 fL Neutrophils (%) (Auto) 74.7 37.0-80.0 % Lymphocytes (%) (Auto) 16.7 10.0-50.0 % Monocytes (%) (Auto) 8.2 0.0-12.0 % Eosinophils (%) (Auto) 0.1 0.0-7.0 % Basophils (%) (Auto) 0.3 0.0-2.0 % Neutrophils # (Auto) 7.4 1.6-8.6 10 ^3/uL Lymphocytes # (Auto) 1.7 0.4-5.4 10 ^3/uL Monocytes # (Auto) 0.8 0-1.3 10 ^3/uL Eosinophils # (Auto) 0 0-0.8 10 ^3/uL Basophils # (Auto) 0 0-0.2 10 ^3/uL Nucleated Red Blood Cells 0.1 % Sodium Level 137 136-145 mmol/L Potassium Level 4.4 3.5-5.1 mmol/L Chloride Level 104 98-107 mmol/L Carbon Dioxide Level 20 # 20-31 mmol/L Anion Gap 13 5-15 Blood Urea Nitrogen 15 9-23 mg/dL Creatinine 1.08 0.700-1.30 mg/dL Glomerular Filtration Rate Calc 72 >90 mL/min BUN/Creatinine Ratio 13.9 10.0-20.0 Serum Glucose 386 #H 74-106 mg/dL Calcium Level 9.6 8.7-10.4 mg/dL Patient alert. Complaining of chest discomfort. EKG reviewed does show atrial fibrillation. Blood sugar elevated. WBC within normal limits. Cardiac marker within normal limits. Establish intravenous access. Was given fluids. Started amiodarone. Was given insulin. Explained to the patient. Continue monitoring. Time of 1ST Reevaluation: 11:30 Reevaluation 1ST: Unchanged Patient Education/Counseling: Diagnosis, Treatment, Prognosis Family Education/Counseling: No Family Present SEPSIS Sepsis Screen Date sepsis recognized/suspect: Jan 19, 2025 Time Sepsis recognized/suspect: 1039 Recent Procedure: No On Antibiotic Therapy: No Respiratory Rate >20: No Heart Rate >90: No Temp<36 C (96.8 F) or >38.3 C: No SBP <90 or MAP <65 mmHG: No New Acute Mental Status Change: No Is the patient on CPAP, BIPAP,: No Physician Orders Chest Portable (01/19/25 10:50) Troponin-I Hs (01/19/25 11:50) Troponin-I Hs (01/19/25 13:50) Electrocardigram (01/19/25 11:55) Complete Blood Count (01/19/25 12:13) Chest Portable (01/19/25 12:13) Urinalysis (01/19/25 12:13) Basic Metabolic Panel (01/19/25 12:13) 1 Liter Bolus Of 0.9% Ns (01/19/25 12:15) 0.9% Ns 30mls/Kg (01/19/25 12:15) Amiodarone 150 Mg Bolus (01/19/25 12:15) Amiodarone Drip 0.5 Mg/Min (01/19/25 18:30) Vital Signs Date Time Temp Pulse Resp B/P (MAP) Pulse Ox O2 Delivery O2 Flow Rate FiO2 01/19/25 11:42 121 01/19/25 11:06 136 01/19/25 10:34 136 01/19/25 10:31 98.7 130 22 118/87 98 98.7 Laboratory Tests Test 01/19/25 10:59 White Blood Count 9.9 10^3/uL (4.4-10.8) Departure 1 Departure Time of Disposition: 12:16 Impression: Primary Impression: Atrial fibrillation Qualified Codes: I48.0 - Paroxysmal atrial fibrillation Additional Impression: Hyperglycemia Disposition: 09 ADMITTED INPATIENT Admit to: Med Surg Condition: Guarded Critical Care Note Critical Care Time?: Yes (90 min-critical care time only) Stability Stability form required: No Heart Score Heart Score: Heart Score Response (Comments) Value History Slightly Suspicious 0 EKG Normal 0 Age >65 2 Risk Factors >3 or Hx ASHD 2 Troponin Normal limit 0 Total 4 I personally scribed for JI BERG MD ([email or web address]) on 01/19/25 at 11:06. Electronically submitted by Sergio Cerna ([email or web address]). JI BERG MD Jan 19, 2025 11:06
[2025-01-19 11:15] LABS: Hematocrit 49.0 % (41.0-53.0); Hemoglobin 17.0 g/dL (13.5-17.5); Mean Corpuscular Hemoglobin 29.9 pg (28.0-32.0); Mean Corpuscular Volume 86.3 fL (80.0-100.0); Nucleated Red Blood Cells % 0.1 %
[2025-01-19 11:24] LABS: Chloride 104 mmol/L (98-107); Potassium 4.4 mmol/L (3.5-5.1); Sodium 137 mmol/L (136-145)
[2025-01-19 11:25] LABS: Anion Gap 13 (5-15); Calcium 9.6 mg/dL (8.7-10.4); Carbon Dioxide 20 mmol/L (20-31)
[2025-01-19 11:30] LABS: BUN/Creatinine Ratio 13.9 (10.0-20.0); Blood Urea Nitrogen 15 mg/dL (9-23)
--- NOTE | 2025-01-19 11:35 | DVH ---
XY CHEST PORTABLE, HISTORY: sob COMPARISON: XY CHEST PORTABLE on DOS: 01/13/25 XY CHEST PORTABLE on DOS: 01/13/25 TECHNICAL DATA: 1 view of the chest was obtained. FINDINGS: Lines and tubes: None Cardiomediastinal silhouette: normal Pulmonary vasculature: normal Lung expansion: normal Lung airspace: normal Lung interstitium: normal Pleura: normal Pneumothorax: no Bones: Unremarkable Other: no IMPRESSION: No acute intrathoracic abnormality.
[2025-01-19 11:36] LABS: Glucose 386 mg/dL (74-106)
[2025-01-19] MEDS: AMIODARONE BOLUS KIT 100 ML IV ONE (12:48)
[2025-01-19] MEDS: SODIUM CHLORIDE 0.9% 1,000 ML IV ONE ×2 (13:30)
[2025-01-19] MEDS: MORPHINE SULFATE 4 MG/ML SYR/VIAL IV ONE (13:30)
[2025-01-19] MEDS: ONDANSETRON HCL 4 MG/2 ML VIAL IV ONE (13:30)
[2025-01-19 14:05] LABS: Hematocrit 47.6 % (41.0-53.0); Hemoglobin 16.0 g/dL (13.5-17.5); Mean Corpuscular Hemoglobin 29.3 pg (28.0-32.0); Mean Corpuscular Volume 87.0 fL (80.0-100.0); Nucleated Red Blood Cells % 0.1 %
[2025-01-19 14:19] LABS: Chloride 105 mmol/L (98-107); Potassium 5.0 mmol/L (3.5-5.1); Sodium 140 mmol/L (136-145)
[2025-01-19 14:20] LABS: Anion Gap 8 (5-15); Carbon Dioxide 27 mmol/L (20-31)
[2025-01-19 14:21] LABS: Calcium 8.9 mg/dL (8.7-10.4)
[2025-01-19 14:25] LABS: BUN/Creatinine Ratio 18.8 (10.0-20.0); Blood Urea Nitrogen 19 mg/dL (9-23)
[2025-01-19 14:35] LABS: Glucose 318 mg/dL (74-106)
--- NOTE | 2025-01-19 18:15 | DVHHP2 ---
Admitting Diagnosis: Chest pain History of Present Illness 74-year-old male presents to the ER with prior medical history of diabetes, kidney stones, thyroid, chronic pain (early on oxycodone and Xanax): Surgical history of right sided chest surgery, tonsil technique, bilateral hand surgery, right elbow surgery and the chief complaint of chest pain. Patient was found by the physician's parking lot barely able to walk and talk. Patient was taken to the ER in a wheelchair due from the patient stating he had pressure-like chest pain to the sternal area for 90 minutes and has shortness a breath with weakness. Denies chills, fever, N/V/D. No other associated symptoms, modifiers, recent injuries or sick contacts present at this time. PAST MEDICAL HISTORY: DM, Kidney Stones, Thyroid Past Medical History (Other): Chronic pain (currently on oxycodone and Xanax) Surgical History: Tonsillectomy Surgical History (Other): Right-sided chest surgery, bilateral hand surgery, right elbow surgery Family History Family History: Reviewed,noncontributory to illness, Unknown Social History Smoker: Non-Smoker Alcohol: Denies ETOH Use Drugs: Denies Drug Use Lives In: Home Patient Family History: Diabetes mellitus G8 FATHER Hypertension G8 MOTHER Allergies: Coded Allergies: NO KNOWN ALLERGIES (Unverified , 01/13/25) Home Meds Active Scripts Naloxone HCl (Narcan) 4 Mg/0.1 Ml Spr, 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, #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 Prov:LUIS PETERSON MD 01/16/25 Oxycodone Hcl (OxyCONTIN ER Tablet) 20 Mg Tb, 1 TAB PO BID PRN, #14 TAB Prov:LUIS PETERSON MD 01/16/25 Reported Medications Dapagliflozin Propanediol (Farxiga) 10 Mg Tab, 5 MG PO DAILY, TAB 01/13/25 Alprazolam (Xanax) 2 Mg Tab, 2 MG PO, TAB 01/13/25 Discontinued Reported Medications Oxycodone Hcl (OXYCODONE HCL) 5 Mg Tb, 30 MG PO, TAB 01/13/25 Current Medications Current Medications Medications (Trade) Dose Ordered Sig/Renetta Route PRN Reason Start Time Stop Time Status Last Admin Amiodarone HCL/ Dextrose 200 ml @ 16.66 mls/ hr Q12H IV 01/19/25 18:30 01/19/25 18:31 Vital Signs Vital Signs Date Time Temp Pulse Resp B/P (MAP) Pulse Ox O2 Delivery O2 Flow Rate FiO2 01/19/25 18:29 114 01/19/25 15:30 19 136/91 (106) 96 01/19/25 13:30 98.0 98.0 01/19/25 12:52 Room Air* 0 21 Physical Exam Generally-74 years old male, overweight, lying in bed. Mild distress HEENT-atraumatic normocephalic Heart-irregular rate and regular Lungs clear to auscultate bilaterally Abdomen soft nondistended nondistended Musculoskeletal-no edema cyanosis Neuro-AO x3, no focal deficit SEPSIS Sepsis Screen Date sepsis recognized/suspect: Jan 19, 2025 Time Sepsis recognized/suspect: 130 Recent Procedure: No On Antibiotic Therapy: No Respiratory Rate >20: No Heart Rate >90: Yes Temp<36 C (96.8 F) or >38.3 C: No SBP <90 or MAP <65 mmHG: No New Acute Mental Status Change: No Is the patient on CPAP, BIPAP,: No Physician Orders Chest Portable (01/19/25 10:50) Electrocardigram (01/19/25 11:55) Urinalysis (01/19/25 12:13) Amiodarone 360mg/200ml Premix (Nexterone (01/19/25 18:30) Echo 2d Mode Cardiac Dop (01/19/25 18:56) Thyroid Stimulating Hormone (01/19/25 18:56) Free T4 (Free Thyroxine) (01/19/25 18:56) Enoxaparin Sodium (Lovenox) (01/19/25 22:00) Cardiac Diet-2gna,Lofat,Lochol (01/20/25 Breakfast) Admit (01/19/25 18:59) Code Status (01/19/25 18:59) Vital Signs .PER UNIT PROTOCOL (01/19/25 18:59) Review Orders With Adm. (01/19/25 18:59) Encourage Activity As Tolerate (01/19/25 18:59) Sodium Chloride Lock (Saline Lock Ns) (01/19/25 22:00) Docusate Sodium Capsule (Colace Capsule) (01/19/25 19:00) Acetaminophen Tablet (Tylenol Tablet) (01/19/25 19:00) Notify Md Of Changes From Base (01/19/25 18:59) Advance Directive (01/19/25 18:59) Patient Condition (01/19/25 18:59) Allergies (01/19/25 18:59) Hydrocodone-Acet 5/325mg Tab ([place] 5/32 (01/19/25 19:00) Ondansetron Hcl (Zofran) (01/19/25 19:00) Nitroglycerin Sublingual (Ntrostat Subli (01/19/25 19:00) Morphine Sulfate Injection (01/19/25 19:00) Stat Ekg For Chest Pain (01/19/25 18:59) Notify Md Of Changes From Base (01/19/25 18:59) Day Care Assistant For 24 Hours (01/19/25 18:59) Emergency Dysrhythmia Protocol (01/19/25 18:59) Rhythm Strips Once Every Shift (01/19/25 18:59) Oxygen By Nasal Cannula (01/19/25 18:59) Glucose Blood (Accu-Chek Comfort Curve T (01/19/25 22:00) Insulin R (Human) (Insulin R) (01/19/25 22:00) Dextrose 50% Syringe (01/19/25 19:00) Drug Screen (01/19/25 19:02) (Nf) Dapagliflozin Propanediol (Farxiga) (01/20/25 10:00) Pharmacy To Reconcile Home Med (01/19/25 19:02) Vital Signs Date Time Temp Pulse Resp B/P (MAP) Pulse Ox O2 Delivery O2 Flow Rate FiO2 01/19/25 18:29 114 01/19/25 16:17 103 01/19/25 15:30 111 19 136/91 (106) 96 01/19/25 13:30 98.0 102 21 125/76 (92) 94 98.0 01/19/25 13:30 102 21 125/76 01/19/25 12:52 Room Air* 0 21 01/19/25 12:52 114 18 133/70 (91) 96 01/19/25 12:35 110 01/19/25 11:42 121 01/19/25 11:06 136 01/19/25 10:34 136 01/19/25 10:31 98.7 130 22 118/87 98 98.7 Laboratory Tests Test 01/19/25 10:59 01/19/25 13:54 White Blood Count 9.9 10^3/uL (4.4-10.8) 9.8 10^3/uL (4.4-10.8) Medications Medications Dose Ordered Sig/Renetta Route Start Time Stop Time Status Last Admin Dose Admin Amiodarone HCl 100 ml @ 600 mls/hr ONCE ONCE IV 01/19/25 12:15 01/19/25 12:24 DC 01/19/25 12:48 Amiodarone HCL/ Dextrose 200 ml @ 16.66 mls/ hr Q12H IV 01/19/25 18:30 01/19/25 18:31 Morphine Sulfate 4 mg ONCE ONCE IV 01/19/25 13:15 01/19/25 13:16 DC 01/19/25 13:30 Ondansetron HCl 4 mg ONCE ONCE IV 01/19/25 13:15 01/19/25 13:16 DC 01/19/25 13:30 Sodium Chloride 1,000 ml @ 1,000 mls/hr Q1H ONCE IV 01/19/25 12:15 01/19/25 13:14 DC 01/19/25 13:30 Results Labs Test 01/19/25 13:54 Range/Units White Blood Count 9.8 4.4-10.8 10^3/uL Red Blood Count 5.47 4.5-5.90 10^6/uL Hemoglobin 16.0 13.5-17.5 g/dL Hematocrit 47.6 41.0-53.0 % Mean Corpuscular Volume 87.0 80.0-100.0 fL Mean Corpuscular Hemoglobin 29.3 28.0-32.0 pg Mean Corpuscular Hemoglobin Concent 33.6 32.0-36.0 g/dL Red Cell Distribution Width 14.5 H 11.8-14.3 % Platelet Count 192 140-450 10^3/uL Mean Platelet Volume 8.4 6.9-10.8 fL Neutrophils (%) (Auto) 75.2 37.0-80.0 % Lymphocytes (%) (Auto) 16.9 10.0-50.0 % Monocytes (%) (Auto) 7.6 0.0-12.0 % Eosinophils (%) (Auto) 0.0 0.0-7.0 % Basophils (%) (Auto) 0.3 0.0-2.0 % Neutrophils # (Auto) 7.4 1.6-8.6 10 ^3/uL Lymphocytes # (Auto) 1.7 0.4-5.4 10 ^3/uL Monocytes # (Auto) 0.7 0-1.3 10 ^3/uL Eosinophils # (Auto) 0 0-0.8 10 ^3/uL Basophils # (Auto) 0 0-0.2 10 ^3/uL Nucleated Red Blood Cells 0.1 % Sodium Level 140 136-145 mmol/L Potassium Level 5.0 3.5-5.1 mmol/L Chloride Level 105 98-107 mmol/L Carbon Dioxide Level 27 20-31 mmol/L Anion Gap 8 5-15 Blood Urea Nitrogen 19 9-23 mg/dL Creatinine 1.01 0.700-1.30 mg/dL Glomerular Filtration Rate Calc 78 >90 mL/min BUN/Creatinine Ratio 18.8 10.0-20.0 Serum Glucose 318 H 74-106 mg/dL Calcium Level 8.9 8.7-10.4 mg/dL Troponin I High Sensitivity 19 </=54 ng/L Primary Diagnosis AFib with RVR Chest pain rule out ACS Plan Patient had arrhythmia in ED. EKG shows inferior RVR Patient is started on amiodarone drip in ED Check TSH, T4 Check echo of the heart Cardiology consult for AFib with RVR new onset Start Lovenox full dose for anticoagulation when Neuro transition to p.o. Cardiac diet ISS. FS goal 140-180 Full code Pharmacy consult for home meds reconciliation No GI prophylaxis needed Plan discussed with: Patient Problems List: (1) Chest pain (2) Hyperglycemia Status: Acute (3) Atrial fibrillation Status: Acute Date of Service: Jan 19, 2025 Billing Provider: ALEXANDER HILL MD Common Visit Codes: 75217-[id number] CARE 30-74 MIN ALEXANDER HILL MD Jan 19, 2025 18:15
[2025-01-19] MEDS: AMIODARONE 360mg/200mL PREMIX 200 ML IV SCH (18:31)
[2025-01-19] MEDS ORDERED: ACETAMINOPHEN 325 MG TAB PO PRN (19:00)
[2025-01-19] MEDS ORDERED: NITROGLYCERIN 0.4 MG SL TAB SL PRN (19:00)
[2025-01-19] MEDS ORDERED: ONDANSETRON HCL 4 MG/2 ML VIAL IV PRN (19:00)
[2025-01-19] MEDS ORDERED: DOCUSATE SOD 100 MG CAP PO PRN (19:00)
[2025-01-19] MEDS ORDERED: DEXTROSE (50%) 50ML SYRG IV PRN (19:00)
[2025-01-19] MEDS ORDERED: MORPHINE SULFATE INJ 2 MG/ml SYRG IV PRN (19:00)
[2025-01-19] MEDS: ENOXAPARIN SOD 100 MG/1 ML SYRINGE SC SCH (19:17)
[2025-01-19] MEDS: HYDROcodone-ACET 5/325MG TAB PO PRN (21:26)
[2025-01-19] MEDS: SODIUM CHLOR 0.9% PF (SALINE LOCK) 10ML VIAL/SYR IV SCH (22:11)
[2025-01-19] MEDS: ACCU-CHEK COMFORT CURVE STRIP VI SCH (22:19)
[2025-01-19] MEDS: InsuLIN REG 1unit/0.01ml Soln (100units/ml) SC SCH (22:23)
[2025-01-20 02:30] VITALS: O2SAT 96
[2025-01-20 04:17] LABS: Hematocrit 46.0 % (41.0-53.0); Hemoglobin 15.9 g/dL (13.5-17.5); Mean Corpuscular Hemoglobin 29.9 pg (28.0-32.0); Mean Corpuscular Volume 86.3 fL (80.0-100.0); Nucleated Red Blood Cells % 0.1 %
[2025-01-20 04:23] LABS: Alanine Aminotransferase 24 U/L (7-40); Albumin 4.0 g/dL (3.2-4.8); Alkaline Phosphatase 71 U/L (46-116); Calcium 9.0 mg/dL (8.7-10.4); Chloride 103 mmol/L (98-107)
[2025-01-20 04:24] LABS: Anion Gap 9 (5-15); BUN/Creatinine Ratio 14.3 (10.0-20.0); Bilirubin, Total 0.6 mg/dL (0.2-1.0); Blood Urea Nitrogen 16 mg/dL (9-23); Carbon Dioxide 27 mmol/L (20-31); Potassium 4.1 mmol/L (3.5-5.1); Sodium 139 mmol/L (136-145); Total Protein 7.0 g/dL (5.7-8.2)
[2025-01-20 04:50] LABS: Glucose 267 mg/dL (74-106)
--- NOTE | 2025-01-20 06:12 | ECG ---
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
[2025-01-20] MEDS ORDERED: DEXTROSE (50%) 50ML SYRG IV PRN (09:15)
[2025-01-20 09:30] VITALS: PULSE 94; RESP 18; O2SAT 98
--- NOTE | 2025-01-20 10:44 | DVH ---
ULTRASOUND SOFT TISSUE HEAD AND NECK CLINICAL INDICATION: Suspected thyroid nodule/malignancy TECHNIQUE: Multiple real time sonographic images of the thyroid were obtained. Comparison: None FINDINGS: The right thyroid gland measures 5.4 x 1.7 x 1.4 cm. The left thyroid gland measures approximately 7.2 x 5.5 x 4.0 cm. The isthmus measures 0.6 cm.. Mixed cystic and solid TR 3 nodule in the left lower pole measures 5.3 cm. Mixed cystic and solid nodule in the right midpole measures 1.4 cm, TR 3. Hypoechoic nodule in the left upper thyroid measures 2.4 cm, TR 4. IMPRESSION: Mixed cystic and solid TR 3 nodule in the left lower pole measures 5.3 cm. Mixed cystic and solid nodule in the right midpole measures 1.4 cm, TR 3. Hypoechoic nodule in the left upper thyroid measures 2.4 cm, TR 4. [employer] TI-RADS Categories and Recommendations (2017): TR1: 0 points, Benign, No FNA TR2: 2 points, Not suspicious, No FNA TR3: 3 points, Mildly suspicious, FNA if > or = 2.5 cm, Follow if > or = 1.5 cm TR4: 4-6 points, Moderately Suspicious, FNA if > or = 1.5 cm, Follow if > or = 1.0 cm TR5: 7+ points, Highly Suspicious, FNA if > or = 1.0 cm, Follow if > or = 0.5 cm Follow-up ultrasound guidelines: TR5: yearly for 5 years, if no growth or change in TI-RADS level TR4: at 1, 2, 3 and 5 years, if no growth or change in TI-RADS level TR3: at 1, 3 and 5 years, if no growth or change in TI-RADS level If increased but below threshold for FNA, repeat in one year. Source: ACR Thyroid Imaging, Reporting and Data System (TI-RADS): White Paper of the ACR TI-RADS Committee. Jason et al., J Am Isabell Radiol 2017;14:587-595.
[2025-01-20] MEDS: ACCU-CHEK COMFORT CURVE STRIP VI SCH (11:02)
[2025-01-20] MEDS: InsuLIN REG 1unit/0.01ml Soln (100units/ml) SC SCH ×2 (11:03→22:00)
[2025-01-20 11:15] LABS: COVID19 ANTIGEN SOFIA FIA NEGATIVE (NEGATIVE)
[2025-01-20] MEDS: PANTOPRAZOLE 40 MG TAB PO SCH (11:36)
--- NOTE | 2025-01-20 12:28 | DVHSR ---
APPROVED REPORT EXAM: Two-dimensional and M-mode echocardiogram with Doppler and color Doppler. Blood Pressure: 135/69 mmHg INDICATION Arrhythmia rule out structural heart disease RISK FACTORS Height: 71, Weight: 222 DIMENSIONS LVDd (3.8-5.7cm)LA (2D)4.8 (1.9-4.0cm)Aortic Root3.4 (2.0-3.7cm) LVDs (2.5-4.0cm)LA (MM) (1.9-4.0cm)Aortic Cusp Exc1.6 (1.5-2.0cm) EF (%) 52.0 (55-70%)Rt. Atrium4.7 (1.9-4.0cm)Asc. Aorta cm Mitral Valve MitralMitral Stenosis E wave1.13m/sMV Mean GR.mmHg A wavem/sMV Peak GR.45mmHg E/A ratio0.02D MVAcm2 Aortic Valve Aortic ValveAortic Stenosis V10.79m/Ascencion Mean GR.2mmHg V21.00m/Ascencion Peak GR.4mmHg LVOT Diameter2.3 (1.8-2.4cm)Doppler AVA3.28cm2 Pulmonic Valve V20.60m/s Tricuspid Valve TR Velocity3.04m/s [id number] Other Information Technically limited study due to body habitus and patient position. Conclusion lvef 60% RV enlarged, normal function biatrial enlargement no severe valve abnormalities noted mild mitral regurg
[2025-01-20] MEDS: INSULIN LANTUS (GLARGINE) 1 /0.01ml (100units/ml) SC SCH (13:09)
[2025-01-20 13:53] VITALS: BP 130/90; PULSE 130; RESP 18; TEMP 98.2; O2SAT 96
--- NOTE | 2025-01-20 14:05 | DVHINCON2 ---
Date Seen: Jan 20, 2025 Referring Physician MD Sergey Reason for Consultation Chest pain, SOB, A-fib History of Present Illness This is a 74-year-old man who presented to the emergency room with multiple complaints. The patient is a poor historian. States he is from [facility] [facility] and is here visiting his friends. Complains of bilateral knee pain, bilateral shoulder blade pain, and lower back pain for unknown amount of time. States he had some issues refilling his Oxycodone therapy at the pharmacy. Denies chest pain, palpitations, diaphoresis, SOB, or syncopal events. Complains of some dizziness, not positional. He underwent a twelve lead electrocardiogram reveal ing an atrial fibrillation rhythm with rapid ventricular rate. Per patient, he was told in the past he had "an irregular heartbeat" undergoing a non-ischemic stress test at [facility] in [facility] approximately three years ago. At that time, he was also advised to undergo an event monitor but somehow the patient failed to follow up. States he only takes pain medications at home despite being diagnosed with other illnesses in the past. He prefers to start a more natural way in the near future. Significant medical history includes acx-agenjeh-dkxxoplgr diabetes mellitus, dyslipidemia, thyroid disease, chronic pain syndrome with narcotic dependence, anxiety, and obesity. Past Medical History Past medical history reviewed. No other significant than mentioned above. Past Surgical History Left carpal tunnel Right elbow x2 Family History: Diabetes mellitus G8 FATHER Hypertension G8 MOTHER Family History Family history reviewed. Social History Denies the use of illicit drugs, alcohol, or tobacco use. 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 Prov:LUIS PETERSON MD 01/16/25 Oxycodone Hcl (OxyCONTIN ER Tablet) 20 Mg Tb, 1 TAB PO BID PRN, #14 TAB Prov:LUIS PETERSON MD 01/16/25 Reported Medications Atorvastatin Calcium (ATORVASTATIN CALCIUM) 20 Mg Tab, 1 TAB PO DAILY for 90 Days, #90 01/20/25 Metformin Hydrochloride (Metformin Hcl) 500 Mg Tab, 1 TAB PO BID for 90 Days, #180 01/20/25 Dapagliflozin Propanediol (Farxiga) 10 Mg Tab, 5 MG PO DAILY, TAB 01/13/25 Alprazolam (Xanax) 2 Mg Tab, 1 TAB PO DAILY for 30 Days 01/13/25 Discontinued Reported Medications Oxycodone Hcl (OXYCODONE HCL) 5 Mg Tb, 30 MG PO, TAB 01/13/25 Home Meds Home medications reviewed. Current Medications Current Medications Medications (Trade) Dose Ordered Sig/Renetta Route PRN Reason Start Time Stop Time Status Last Admin Amiodarone HCL/ Dextrose 200 ml @ 16.66 mls/ hr Q12H IV 01/19/25 18:30 01/20/25 06:07 Enoxaparin Sodium (Lovenox) 100 mg Q12HR SC 01/19/25 19:17 01/20/25 10:53 Sodium Chloride (Saline Lock Ns) 10 ml Q8HR IV 01/19/25 22:00 01/20/25 13:45 Docusate Sodium (Colace Capsule) 100 mg BIDPRN PRN PO FOR CONSTIPATION 01/19/25 19:00 Acetaminophen (Tylenol Tablet) 650 mg Q6HP PRN PO PAIN SCALE 1-3 OR TEMP>100.4 01/19/25 19:00 Acetaminophen/ Hydrocodone Bitart ([place] 5/325MG Tab) 1 tab Q4HP PRN PO MODERATE PAIN (4-6 PAIN SCALE) 01/19/25 19:00 01/19/25 21:26 Ondansetron HCl (Zofran) 4 mg Q4HP PRN IV NAUSEA / VOMITING 01/19/25 19:00 Nitroglycerin (Ntrostat Sublingual) 0.4 mg Q5MINP PRN SL FOR CHEST PAIN 01/19/25 19:00 Morphine Sulfate 2 mg Q30M PRN IV FOR CHEST PAIN 01/19/25 19:00 Diagnostic Test (Pha) (Accu-Chek Comfort Curve T) 1 strip ACHS 01/19/25 22:00 01/20/25 09:04 DC 01/20/25 06:35 Insulin Human Regular (InsuLIN R) ACHS SC 01/19/25 22:00 01/20/25 09:04 DC 01/20/25 06:31 Dextrose 50 ml UD PRN IV Blood Sugar LESS THAN 60 01/19/25 19:00 01/20/25 09:04 DC Patient Own Medication 5 mg DAILY PO 01/20/25 10:00 Diagnostic Test (Pha) (Accu-Chek Comfort Curve T) 1 strip ACHS 01/20/25 11:30 01/20/25 11:02 Insulin Human Regular (InsuLIN R) HS SC 01/20/25 22:00 Insulin Human Regular (InsuLIN R) AC SC 01/20/25 11:30 01/20/25 11:03 Dextrose 50 ml UD PRN IV Blood Sugar LESS THAN 60 01/20/25 09:15 Pantoprazole Sodium (Protonix Tablet) 40 mg DAILY@0600 PO 01/20/25 10:45 01/20/25 11:36 Insulin Glargine (Lantus) 15 units DAILY@1000 SC 01/20/25 11:30 01/20/25 13:09 Review of Systems Constitutional: No symptom reported Ears, Nose, & Throat: No symptom reported Eyes: No symptom reported Neurological: No symptoms reported Pulmonary/Respiratory: No symptom reported Cardiovascular: No symptom reported Gastrointestinal: No symptom reported Genitourinary: No symptom reported Musculoskeletal: Bilateral knee pain, bilateral clavicular pain, lower back pain Skin: No symptom reported Psychiatric: No symptom reported Endocrine: No symptom reported Hemotologic/Lymphatic: No symptom reported Vital Signs Vital Signs Date Time Temp Pulse Resp B/P (MAP) Pulse Ox O2 Delivery O2 Flow Rate FiO2 01/20/25 12:00 100 01/20/25 12:00 18 126/69 (88) 97 01/20/25 10:00 97.7 97.7 01/20/25 09:30 Room Air* 0 21 Physical Exam General Appearance: Cooperative. In no acute distress. Obese Head Exam: Normal inspection Neck Exam: Normal inspection. Non-tender. Normal alignment Pulmonary/Respiratory: Chest non-tender. Clear bilateral breath sounds Cardiovascular/Chest: Irregularly irregular rate and rhythm. A-fib controlled rate. No murmurs. No JVD. Peripheral Pulses: 2+ Radial (R). 2+ Radial (L). 2+ Pedal (R). 2+ Pedal (L) Abdominal Exam: Normal bowel sounds. Soft. Nontender. No hepatospenomegaly. No masses Ankle Exam: Negative ankle edema Lower extremities: Negative lower extremity edema Neuro/Mental Status: A&O x3. Very poor historian, rambling thoughts Thoughts/Psych: Normal thought pattern. Fidgety Appearance: In no acute distress Skin Exam: Normal inspection. Normal color. Warm. Dry Labs/Diagnostic Data Labs Test 01/20/25 12:59 01/20/25 12:48 01/20/25 10:30 01/20/25 03:14 Range/Units Beta-Hydroxybutyric Acid 0.227 < 0.4 mmol/L POC Glucose 243 H 70-106 mg/dl Influenza Type A Antigen Negative Negative Influenza Type B Antigen Negative Negative SARS-CoV-2 Antigen (Rapid) Negative NEGATIVE White Blood Count 9.6 4.4-10.8 10^3/uL Red Blood Count 5.33 4.5-5.90 10^6/uL Hemoglobin 15.9 13.5-17.5 g/dL Hematocrit 46.0 41.0-53.0 % Mean Corpuscular Volume 86.3 80.0-100.0 fL Mean Corpuscular Hemoglobin 29.9 28.0-32.0 pg Mean Corpuscular Hemoglobin Concent 34.6 32.0-36.0 g/dL Red Cell Distribution Width 14.4 H 11.8-14.3 % Platelet Count 197 140-450 10^3/uL Mean Platelet Volume 8.8 6.9-10.8 fL Neutrophils (%) (Auto) 66.8 37.0-80.0 % Lymphocytes (%) (Auto) 24.4 10.0-50.0 % Monocytes (%) (Auto) 7.8 0.0-12.0 % Eosinophils (%) (Auto) 0.4 0.0-7.0 % Basophils (%) (Auto) 0.6 0.0-2.0 % Neutrophils # (Auto) 6.4 1.6-8.6 10 ^3/uL Lymphocytes # (Auto) 2.3 0.4-5.4 10 ^3/uL Monocytes # (Auto) 0.7 0-1.3 10 ^3/uL Eosinophils # (Auto) 0 0-0.8 10 ^3/uL Basophils # (Auto) 0.1 0-0.2 10 ^3/uL Nucleated Red Blood Cells 0.1 % Sodium Level 139 136-145 mmol/L Potassium Level 4.1 3.5-5.1 mmol/L Chloride Level 103 98-107 mmol/L Carbon Dioxide Level 27 20-31 mmol/L Anion Gap 9 5-15 Blood Urea Nitrogen 16 9-23 mg/dL Creatinine 1.12 0.700-1.30 mg/dL Glomerular Filtration Rate Calc 69 >90 mL/min BUN/Creatinine Ratio 14.3 10.0-20.0 Serum Glucose 267 H 74-106 mg/dL Calcium Level 9.0 8.7-10.4 mg/dL Magnesium Level 2.1 1.6-2.6 mg/dL Total Bilirubin 0.6 0.2-1.0 mg/dL Aspartate Amino Transferase (AST) 34 13-40 U/L Alanine Aminotransferase (ALT) 24 7-40 U/L Alkaline Phosphatase 71 46-116 U/L B-Type Natriuretic Peptide 77.90 0-100 pg/mL Total Protein 7.0 5.7-8.2 g/dL Albumin 4.0 3.2-4.8 g/dL Vitamin B12 Level 685 211-911 pg/mL Vitamin D 25-Hydroxy 30.1 30.0-100 ng/mL Folic Acid 16.20 >5.38 ng/mL Test 01/19/25 13:54 Range/Units Troponin I High Sensitivity 19 </=54 ng/L Thyroid Stimulating Hormone (TSH) 0.63 0.55-4.78 uIU/mL Free Thyroxine (T4) Calculated 1.03 0.89-1.76 ng/dL Assessment Atrial fibrillation with rapid ventricular rate, likely Stage IIIb Chronic pain syndrome with drug-seeking behavior Adi-ofxxbax-jgmbrvfem diabetes mellitus, uncontrolled HgbA1C >12% Thyroid disease Dyslipidemia Medical noncompliance Obesity Plan/Recommendation (Dr. Pete) Transthoracic echocardiogram revealed LVEF 60% with biatrial enlargement and RV enlarged with normal function. The patient presents with atrial fibrillation with rapid ventricular rate, now at a controlled rate. Initiate rate control with beta-anupam, uptitrate as tolerated. Avoid antiarrhythmic therapy given likely stage IIIb after reviewing twelve-lead ECGs from this admission and previous admission. Continue therapeutic Lovenox and transition to DOAC therapy prior to discharge ([id number] Score 3 points, HAS-BLED Score 1 point). Thyroid US results per primary care team. Continue tight glycemic control. Obtain UDS rule out acute toxicity. Initiate IVF. Monitor ECG changes closely and notify accordingly. Further orders per clinical course. Thank you for allowing us to participate in this patient's care. Please call if you have any questions or concerns. Critical care time: 40 min. This medical document was created using an electronic medical record system with voice recognition software and computerized dictation system. Although this document has been carefully reviewed, there might still be some phonetic and typographical errors. Occasional wrong-word or ``sound-alike substitutions may have occurred due to the inherent limitations of voice recognition software. These areas are purely typographical due to imperfections of the software programs and do not reflect any compromise in the patient's medical care. Please read the chart carefully and recognize, using context, where these substitutions have occurred. Plan discussed with: Patient, Other NYHA Physical activity limitations: NA Date of Service: Jan 20, 2025 Billing Provider: GUNNAR RAYA Cardiology Common Codes: [id number] CARE 30-74 MIN GUNNAR RAYA Jan 20, 2025 14:05
[2025-01-20] MEDS: SODIUM CHLORIDE 0.9% 1,000 ML IV ONE ×2 (14:15)
[2025-01-20 14:38] LABS: Triglycerides 94 mg/dL (< 150)
[2025-01-20 14:40] LABS: HDL Cholesterol 51 mg/dL (40-59)
[2025-01-20 14:41] LABS: Cholesterol 174 mg/dL (< 200)
[2025-01-20] MEDS: METOPROLOL SUCCINATE XL 50 MG TAB PO ONE (14:59)
[2025-01-20] MEDS: MAGNESIUM OXIDE 400 MG TAB PO ONE (14:59)
--- NOTE | 2025-01-20 14:59 | DVH ---
CLINICAL HISTORY: Dizziness with new onset a-fib TECHNIQUE: Helical scanning was performed of the head from the skull base to the vertex. Multiplanar reconstructions were performed. This exam was performed according to our departmental dose optimizat ion program. Up-to-date CT equipment and radiation dose reduction techniques are utilized as appropri ate. CTDI 59.3 DLP 166.4 COMPARISON: None FINDINGS: There is no evidence for acute intracranial hemorrhage, acute ischemic changes, mass, mass effect, or extra-axial fluid collection. There is no hydrocephalus or midline shift. There is no effacement of the cerebral sulci and basal subarachnoid cisterns. The arthur-white matter differentiation is well lindsey ntained. There is mild brain volume loss. They always say The imaged paranasal sinuses are clear. IMPRESSION: NO ACUTE INTRACRANIAL ABNORMALITY SEEN.
--- NOTE | 2025-01-20 16:25 | DVHPNRES ---
Progress Note Date Seen: Jan 20, 2025 Resident Creating Document: TONY GRIFFITH RESIDENT Medical Necessity Reason Pt with a Central, PICC or Fol: No Subjective Review of Systems Patient is 74 years old male with past medical history of diabetes mellitus type 2, osteoarthritis, thyroid disease, kidney stone, chronic narcotic dependency, anxiety came with a complaint of chest pain and shortness of breaths. patient was found at the physician parking lot when he was barely talking or walking. Patient was brought to the ER on a wheelchair by hospital staff and found to have atrial fibrillation with rapid ventricular rate. Patient reported he was having chest pain and shortness of breaths for last 4 days after he got discharged from the [facility] recently. Chest pain was intermittent, pressure-like, no radiation, exacerbated with the exertion, relieved with rest. Patient also endorsed shortness of with the exertion. On further inquiry patient also endorsed palpitation for last couple of days. Patient denied any fever, cough, acute joint swelling or redness or diarrhea or dysarthria. At the ER patient was found to have atrial fibrillation with rapid ventricular rate, treated with amiodarone and put on Lovenox. Troponin I negative. Blood sugar 386. Chest x-ray no acute cardiopulmonary disease. Thyroid ultrasound revealed-Mixed cystic and solid TR 3 nodule in the left lower pole measures 5.3 cm.. Mixed cystic and solid nodule in the right midpole measures 1.4 cm, TR 3. Hypoechoic nodule in the left upper thyroid measures 2.4 cm, TR 4. Echo 2D revealed LVEF 60%. SP 45. Bilateral atrial enlargement. RV enlargement. PMH- diabetes mellitus type 2, osteoarthritis, thyroid disease, kidney stone, chronic narcotic deficiency, anxiety PSH- Tonsillectomy right elbow surgery, bilateral hand surgery, Allergy- NKDA Personal History/ Social History- denies smoking/alcoholism / drug abuse, lives in home alone Gastrointestinal- denies any rectal bleeding, nausea or vomiting Musculoskeletal-denies acute joint swelling or tenderness or redness Neurological- denies acute dysarthria, dysphagia, change in vision Psychiatry- denies depression or SI or HI Skin- denies acute rash or purpura Patient was seen today at bedside. Labs and chart reviewed. Patient denied any chest pain or shortness of breaths. Reported feeling better. Complained of insomnia, ordered melatonin at q.h.s.. Echo 2D revealed LVEF 60%, right ventricular enlarged. Biatrial enlarged. Mild mitral regurgitation. RVSP 45. Objective vital signs Vital Sign Date Time Temp Pulse Resp B/P (MAP) Pulse Ox O2 Delivery O2 Flow Rate FiO2 01/20/25 14:59 106 135/69 01/20/25 13:53 98.2 18 96 98.2 01/20/25 13:53 Room Air* 0 21 Total Intake and Output 01/19/25 01/19/25 01/20/25 15:00 23:00 07:00 Intake Total 1100 ml Balance 1100 ml medications Current Medications Medications Dose Ordered Sig/Renetta Route Start Time Stop Time Status Last Admin Dose Admin Enoxaparin Sodium 100 mg Q12HR SC 01/19/25 19:17 01/20/25 10:53 100 MG Sodium Chloride 10 ml Q8HR IV 01/19/25 22:00 01/20/25 13:45 10 ML Docusate Sodium 100 mg BIDPRN PRN PO 01/19/25 19:00 Acetaminophen 650 mg Q6HP PRN PO 01/19/25 19:00 Acetaminophen/ Hydrocodone Bitart 1 tab Q4HP PRN PO 01/19/25 19:00 01/19/25 21:26 1 TAB Ondansetron HCl 4 mg Q4HP PRN IV 01/19/25 19:00 Nitroglycerin 0.4 mg Q5MINP PRN SL 01/19/25 19:00 Morphine Sulfate 2 mg Q30M PRN IV 01/19/25 19:00 Patient Own Medication 5 mg DAILY PO 01/20/25 10:00 Diagnostic Test (Pha) 1 strip ACHS 01/20/25 11:30 01/20/25 11:02 1 STRIP Insulin Human Regular HS SC 01/20/25 22:00 Insulin Human Regular AC SC 01/20/25 11:30 01/20/25 11:03 12 UNITS Dextrose 50 ml UD PRN IV 01/20/25 09:15 Pantoprazole Sodium 40 mg DAILY@0600 PO 01/20/25 10:45 01/20/25 11:36 40 MG Insulin Glargine 15 units DAILY@1000 SC 01/20/25 11:30 01/20/25 13:09 15 UNITS Metoprolol Succinate 25 mg DAILY PO 01/21/25 10:00 Magnesium Oxide 400 mg DAILY PO 01/21/25 10:00 Examination General examination- awake, alert, oriented HEENT- PEERLA, no acute nasal discharge Cardiovascular- S1-S2 audible, rate and rhythm irregular, no murmur Respiratory- CTAB, no wheeze or rhonchi Gastrointestinal-nontender, bowel sound+. Nondistended Musculoskeletal-no acute joint swelling or tenderness or redness Lower extremity- bilateral trace leg edema+ Neurological- cranial nerves intact, no acute dysarthria or dysphagia Psychiatry- denies depression or SI or HI Skin- no acute rash or purpura laboratory and microbiology Laboratory Tests 01/20/25 03:14 Test 01/20/25 03:14 Range/Units Serum Glucose 267 H 74-106 mg/dL Problem List/Assessment/Plan Problem List/Assessment/Plan Assessment and plan # Atrial fibrillation with a rapid ventricular rate -EKG-atrial fibrillation with a rapid ventricular rate -([id number] Score 3 points, HAS-BLED Score 1 point -troponin I with a normal limit -BNP with a normal limit - Echo 2D revealed LVEF 60%, right ventricular enlarged. Biatrial enlarged. Mild mitral regurgitation. RVSP 45. -continue Lovenox as prescribed -metoprolol succinate XL 25 mg p.o. daily -patient was seen by Cardiology, recommendation reviewed and appreciated. # Acute chest pain - rule out acute coronary syndrome -EKG no acute ST T-wave changes -troponin I with a normal limit -pending cardiology consult -continue metoprolol 25 mg p.o. daily -continue other medication as prescribed -continue Lovenox as prescribed # Acute respiratory distress, rule out CHF/ pneumonia -CXR no acute cardiopulmonary disease --EKG-atrial fibrillation -troponin I with a normal limit -BNP with a normal limit - Echo 2D revealed LVEF 60%, right ventricular enlarged. Biatrial enlarged. Mild mitral regurgitation. RVSP 45. -continue metoprolol 25 mg p.o. daily # uncontrolled diabetes mellitus type 2 with hyperglycemia -recent hemoglobin A1c on 01/13/2025 12.8 -continue insulin Lantus as prescribed -continue IV normal saline as prescribed -continue insulin sliding scale as prescribed # pulmonary hypertension -follow up with the fruit checker as an outpatient for further evaluation and care # multiple thyroid nodule -TSH and if T3 in with a normal limit -ultrasound of the thyroid revealed- Thyroid ultrasound revealed-Mixed cystic and solid TR 3 nodule in the left lower pole measures 5.3 cm.. Mixed cystic and solid nodule in the right midpole measures 1.4 cm, TR 3. Hypoechoic nodule in the left upper thyroid measures 2.4 cm, TR 4. -plan is to do outpatient follow up with the wastewater analyst lab analyst and also for FNA for further evaluation and care # osteoarthritis -continue current pain management as prescribed # anxiety # history of chronic narcotic dependence # med nonadherence -patient was counseled about the importance of med adherence Goals of care, Code status full code ; discussed with >15 minutes PUD prophylaxis: pantoprazole DVT prophylaxis: Lovenox Plan discussed with Dr. Hanson , nursing staff, Total time spent on patient evaluation, chart review, assessment and plan, discussion discussion >35 minutes Plan discussed with: Patient, Other (RN) My Orders My Orders Orders - TONY GRIFFITH Procedure Category Date Status Time Thyroid US 01/20/25 Resulted 09:19 * Cardiology Consult CONS 01/20/25 Transmitted 09:43 Pantoprazole Tablet PHA 01/20/25 In Process (Protonix Tablet) 10:45 Insulin Lantus PHA 01/20/25 In Process (Glargine) (Lantus) 11:30 Melatonin (Melatonin) PHA 01/20/25 In Process 22:00 TONY GRIFFITH Jan 20, 2025 16:24
[2025-01-20 17:00] VITALS: BP 144/81; PULSE 84; RESP 18; TEMP 98; O2SAT 100
[2025-01-20 17:35] LABS: Benzodiazephine Screen, Urine Neg (NEGATIVE); Cannabinoid Screen, Urine Neg (NEGATIVE)
[2025-01-20 17:37] LABS: Amphetamine Screen, Urine Neg (NEGATIVE); Barbiturate Scree,Urine Neg (NEGATIVE); Cocaine Screen, Urine Neg (NEGATIVE); Opiate Scree,Urine Pos (NEGATIVE); Phencyclidine Screen, Urine Neg (NEGATIVE)
[2025-01-20 20:00] VITALS: PULSE 84; PULSE 93; RESP 16; O2SAT 96
[2025-01-20 20:40] VITALS: BP 115/59; PULSE 84; RESP 17; TEMP 98.2; O2SAT 96
[2025-01-20] MEDS: MORPHINE SULFATE INJ 2 MG/ml SYRG IV PRN (21:38)
[2025-01-21] MEDS: MELATONIN 5 MG TAB PO ONE (00:10)
[2025-01-21] MEDS: HYDROcodone-ACET 10/325MG TAB PO PRN (00:11)
[2025-01-21 00:53] VITALS: BP 113/65; PULSE 95; RESP 16; TEMP 98.2; O2SAT 92
[2025-01-21 01:44] LABS: Benzodiazephine Screen, Urine Neg (NEGATIVE); Cannabinoid Screen, Urine Neg (NEGATIVE)
[2025-01-21 01:47] LABS: Amphetamine Screen, Urine Neg (NEGATIVE); Barbiturate Scree,Urine Neg (NEGATIVE); Cocaine Screen, Urine Neg (NEGATIVE); Opiate Scree,Urine Pos (NEGATIVE); Phencyclidine Screen, Urine Neg (NEGATIVE)
[2025-01-21 01:49] LABS: Urine Protein, UAD TRACE (Negative)
[2025-01-21 04:41] VITALS: BP 123/66; PULSE 71; RESP 18; O2SAT 95
[2025-01-21 07:06] LABS: Hematocrit 43.0 % (41.0-53.0); Hemoglobin 14.7 g/dL (13.5-17.5); Mean Corpuscular Hemoglobin 29.5 pg (28.0-32.0); Mean Corpuscular Volume 86.0 fL (80.0-100.0); Nucleated Red Blood Cells % 0.6 %
[2025-01-21 07:26] LABS: Alanine Aminotransferase 28 U/L (7-40); Albumin 3.6 g/dL (3.2-4.8); Alkaline Phosphatase 60 U/L (46-116); Anion Gap 9 (5-15); BUN/Creatinine Ratio 20.9 (10.0-20.0); Bilirubin, Total 0.8 mg/dL (0.2-1.0); Blood Urea Nitrogen 19 mg/dL (9-23); Carbon Dioxide 27 mmol/L (20-31); Chloride 104 mmol/L (98-107); Glucose 83 mg/dL (74-106); Magnesium 2.2 mg/dL (1.6-2.6); Potassium 3.9 mmol/L (3.5-5.1); Sodium 140 mmol/L (136-145); Total Protein 6.2 g/dL (5.7-8.2)
[2025-01-21 07:27] LABS: Calcium 8.6 mg/dL (8.7-10.4)
[2025-01-21 08:00] VITALS: PULSE 77; PULSE 84; RESP 16; O2SAT 96
[2025-01-21] MEDS ORDERED: DEXTROSE (50%) 50ML SYRG IV PRN (08:15)
[2025-01-21 09:00] VITALS: BP 115/70; PULSE 74; RESP 16; TEMP 97.9; O2SAT 98
--- NOTE | 2025-01-21 09:22 | DVHPN2 ---
Consult Progress Note Date Seen: Jan 21, 2025 Subjective Review of Systems: CVS:Normal, RESPIRATORY:Normal, MSK:Abnormal, NEURO:Normal Other Systems: C/o bilateral shoulder pain and knee pain Objective vital signs Vital Sign Date Time Temp Pulse Resp B/P (MAP) Pulse Ox O2 Delivery O2 Flow Rate FiO2 01/21/25 06:50 72 16 115/71 01/21/25 04:41 95 01/21/25 00:53 98.2 98.2 01/20/25 20:00 Room Air* 0 21 Total Intake and Output 01/20/25 01/20/25 01/21/25 15:00 23:00 07:00 Intake Total 600 ml 800 ml Output Total 650 ml Balance 600 ml 150 ml medications Current Medications Medications Dose Ordered Sig/Renetta Route Start Time Stop Time Status Last Admin Dose Admin Enoxaparin Sodium 100 mg Q12HR SC 01/19/25 19:17 01/20/25 21:37 100 MG Sodium Chloride 10 ml Q8HR IV 01/19/25 22:00 01/21/25 06:07 10 ML Docusate Sodium 100 mg BIDPRN PRN PO 01/19/25 19:00 Acetaminophen 650 mg Q6HP PRN PO 01/19/25 19:00 Ondansetron HCl 4 mg Q4HP PRN IV 01/19/25 19:00 Nitroglycerin 0.4 mg Q5MINP PRN SL 01/19/25 19:00 Morphine Sulfate 2 mg Q30M PRN IV 01/19/25 19:00 Patient Own Medication 5 mg DAILY PO 01/20/25 10:00 Insulin Human Regular HS SC 01/20/25 22:00 Pantoprazole Sodium 40 mg DAILY@0600 PO 01/20/25 10:45 01/21/25 06:18 40 MG Insulin Glargine 15 units DAILY@1000 SC 01/20/25 11:30 01/20/25 13:09 15 UNITS Metoprolol Succinate 25 mg DAILY PO 01/21/25 10:00 Magnesium Oxide 400 mg DAILY PO 01/21/25 10:00 Morphine Sulfate 2 mg Q6HPRN PRN IV 01/20/25 18:30 01/21/25 06:20 2 MG Acetaminophen/ Hydrocodone Bitart 1 tab Q6HP PRN PO 01/20/25 18:30 01/21/25 00:11 1 TAB Diagnostic Test (Pha) 1 strip ACHS 01/21/25 11:30 Insulin Human Regular ACHS SC 01/21/25 11:30 Dextrose 50 ml UD PRN IV 01/21/25 08:15 Atorvastatin Calcium 40 mg HS PO 01/21/25 22:00 Examination: LUNGS:Normal, CVS:Normal (A-fib controlled rate), NEURO:Normal laboratory and microbiology Laboratory Tests 01/21/25 05:21 Test 01/21/25 05:21 Range/Units Serum Glucose 83 # 74-106 mg/dL Problem List/Assessment/Plan Problem List/Assessment/Plan Atrial fibrillation with rapid ventricular rate, likely Stage IIIb Pulmonary hypertension, moderate degree Chronic pain syndrome with drug-seeking behavior Reb-nflmrvl-uthkzvicb diabetes mellitus, uncontrolled HgbA1C >12% Thyroid disease Dyslipidemia Medical noncompliance Obesity Plan/Recommendation (Dr. Pete) Transthoracic echocardiogram revealed LVEF 60% with biatrial enlargement and RV enlarged with normal function. Atrial fibrillation now at a controlled rate. Avoid antiarrhythmic therapy given likely stage IIIb. Continue rate control with beta-anupam, uptitrate as tolerated. Transition to DOAC therapy with Eliquis ([id number] Score 3 points, HAS-BLED Score 1 point). Thyroid US results and work-up per primary care team. Continue tight glycemic control. Follow-up with a primary range master within 1-2 weeks post discharge. There is no further cardiac work-up indicated at this time. Kindly call with any questions. Thank you for allowing us to participate in this patient's care. This medical document was created using an electronic medical record system with voice recognition software and computerized dictation system. Although this document has been carefully reviewed, there might still be some phonetic and typographical errors. Occasional wrong-word or ``sound-alike substitutions may have occurred due to the inherent limitations of voice recognition software. These areas are purely typographical due to imperfections of the software programs and do not reflect any compromise in the patient's medical care. Please read the chart carefully and recognize, using context, where these substitutions have occurred. Plan discussed with: Patient, Other Date of Service: Jan 21, 2025 Billing Provider: GUNNAR RAYA Cardiology Common Codes: [id number] GUNNAR RAYA Jan 21, 2025 09:22
[2025-01-21] MEDS: APIXABAN 5 MG TAB PO SCH (10:00)
[2025-01-21] MEDS: MAGNESIUM OXIDE 400 MG TAB PO SCH (10:13)
[2025-01-21] MEDS: METOPROLOL SUCCINATE XL 50 MG TAB PO SCH (10:15)
[2025-01-21] MEDS: InsuLIN REG 1unit/0.01ml Soln (100units/ml) SC SCH (11:30)
[2025-01-21] MEDS: ACCU-CHEK COMFORT CURVE STRIP VI SCH (11:30)
[2025-01-21 13:00] VITALS: BP 111/52; PULSE 73; RESP 16; TEMP 98.3; O2SAT 97
--- NOTE | 2025-01-21 13:05 | DVHDSRES ---
Discharge Summary Date of Admission Resident Creating Document: TONY GRIFFITH Jan 19, 2025 at 18:59 Date of Discharge: Jan 21, 2025 Admitting Diagnosis Atrial fibrillation with rapid ventricular rate Labs/Diagnostic Data: Laboratory Results Test 01/21/25 12:31 01/21/25 05:21 01/21/25 00:00 01/20/25 12:59 POC Glucose 204 mg/dl (70-106) White Blood Count 8.9 10^3/uL (4.4-10.8) Red Blood Count 5.00 10^6/uL (4.5-5.90) Hemoglobin 14.7 g/dL (13.5-17.5) Hematocrit 43.0 % (41.0-53.0) Mean Corpuscular Volume 86.0 fL (80.0-100.0) Mean Corpuscular Hemoglobin 29.5 pg (28.0-32.0) Mean Corpuscular Hemoglobin Concent 34.2 g/dL (32.0-36.0) Red Cell Distribution Width 14.9 % (11.8-14.3) Platelet Count 191 10^3/uL (140-450) Mean Platelet Volume 9.5 fL (6.9-10.8) Neutrophils (%) (Auto) 53.3 % (37.0-80.0) Lymphocytes (%) (Auto) 36.2 % (10.0-50.0) Monocytes (%) (Auto) 7.9 % (0.0-12.0) Eosinophils (%) (Auto) 1.6 % (0.0-7.0) Basophils (%) (Auto) 1.0 % (0.0-2.0) Neutrophils # (Auto) 4.8 10 ^3/uL (1.6-8.6) Lymphocytes # (Auto) 3.2 10 ^3/uL (0.4-5.4) Monocytes # (Auto) 0.7 10 ^3/uL (0-1.3) Eosinophils # (Auto) 0.1 10 ^3/uL (0-0.8) Basophils # (Auto) 0.1 10 ^3/uL (0-0.2) Nucleated Red Blood Cells 0.6 % Sodium Level 140 mmol/L (136-145) Potassium Level 3.9 mmol/L (3.5-5.1) Chloride Level 104 mmol/L (98-107) Carbon Dioxide Level 27 mmol/L (20-31) Anion Gap 9 (5-15) Blood Urea Nitrogen 19 mg/dL (9-23) Creatinine 0.91 mg/dL (0.700-1.30) Glomerular Filtration Rate Calc 88 mL/min (>90) BUN/Creatinine Ratio 20.9 (10.0-20.0) Serum Glucose 83 mg/dL (74-106) Calcium Level 8.6 mg/dL (8.7-10.4) Magnesium Level 2.2 mg/dL (1.6-2.6) Total Bilirubin 0.8 mg/dL (0.2-1.0) Aspartate Amino Transferase (AST) 31 U/L (13-40) Alanine Aminotransferase (ALT) 28 U/L (7-40) Alkaline Phosphatase 60 U/L (46-116) Total Protein 6.2 g/dL (5.7-8.2) Albumin 3.6 g/dL (3.2-4.8) Urine Color Yellow (Yellow) Urine Clarity Clear (Clear) Urine pH 5.5 (5.0-9.0) Urine Specific [place] 1.036 (1.001-1.035) Urine Protein Trace (Negative) Urine Ketones Trace (Negative) Urine Blood 2+ /uL (Negative) Urine Nitrite Negative (Negative) Urine Bilirubin Negative (Negative) Urine Urobilinogen Normal mg/dL (Negative) Urine Leukocyte Esterase Negative /uL (Negative) Urine RBC 63 /hpf (0 - 3) Urine Microscopic WBC 4 /HPF (0-3) Urine Squamous Epithelial Cells Few /hpf (<5) Urine Bacteria None seen /hpf (None Seen) Urine Mucus Few (None Seen) Urine Glucose 1+ mg/dL (Normal) Urine Opiates Screen Pos (NEGATIVE) Urine Fentanyl Screen Neg (NEGATIVE) Urine Barbiturates Screen Neg (NEGATIVE) Urine Phencyclidine Screen Neg (NEGATIVE) Urine Amphetamines Screen Neg (NEGATIVE) Urine Benzodiazepines Screen Neg (NEGATIVE) Urine Cocaine Screen Neg (NEGATIVE) Urine Cannabinoids Screen Neg (NEGATIVE) Triglycerides Level 94 mg/dL (< 150) Cholesterol Level 174 mg/dL (< 200) LDL Cholesterol 113 mg/dL (< 100) HDL Cholesterol 51 mg/dL (40-59) Beta-Hydroxybutyric Acid 0.227 mmol/L (< 0.4) Test 01/20/25 10:30 01/20/25 03:14 01/19/25 13:54 Influenza Type A Antigen Negative (Negative) Influenza Type B Antigen Negative (Negative) SARS-CoV-2 Antigen (Rapid) Negative (NEGATIVE) B-Type Natriuretic Peptide 77.90 pg/mL (0-100) Vitamin B12 Level 685 pg/mL (211-911) Vitamin D 25-Hydroxy 30.1 ng/mL (30.0-100) Folic Acid 16.20 ng/mL (>5.38) Troponin I High Sensitivity 19 ng/L (</=54) Thyroid Stimulating Hormone (TSH) 0.63 uIU/mL (0.55-4.78) Free Thyroxine (T4) Calculated 1.03 ng/dL (0.89-1.76) Other Laboratory Tests 01/21/25 05:21 Brief Hx & Hospital Course: Patient is 74 years old male with past medical history of diabetes mellitus type 2, osteoarthritis, thyroid disease, kidney stone, chronic narcotic dependency, anxiety came with a complaint of chest pain and shortness of breaths. patient was found at the physician parking lot when he was barely talking or walking. Patient was brought to the ER on a wheelchair by hospital staff and found to have atrial fibrillation with rapid ventricular rate. Patient reported he was having chest pain and shortness of breaths for last 4 days after he got discharged from the [facility] recently. Chest pain was intermittent, pressure-like, no radiation, exacerbated with the exertion, relieved with rest. Patient also endorsed shortness of with the exertion. On further inquiry patient also endorsed palpitation for last couple of days. Patient denied any fever, cough, acute joint swelling or redness or diarrhea or dysarthria. At the ER patient was found to have atrial fibrillation with rapid ventricular rate, treated with amiodarone and put on Lovenox. Troponin I negative. Blood sugar 386. Chest x-ray no acute cardiopulmonary disease. Thyroid ultrasound revealed-Mixed cystic and solid TR 3 nodule in the left lower pole measures 5.3 cm.. Mixed cystic and solid nodule in the right midpole measures 1.4 cm, TR 3. Hypoechoic nodule in the left upper thyroid measures 2.4 cm, TR 4. Echo 2D revealed LVEF 60%. SP 45. Bilateral atrial enlargement. RV enlargement. CT head negative for acute intracranial abnormality. Hospital course-dyspnea hospitalization patient was treated with a amiodarone initially for atrial fibrillation with rapid ventricular rate. Patient was seen by corporate travel coordinator, recommended metoprolol and discontinued amiodarone p.o. patient was on Lovenox initially and then switched to Eliquis on discharge. With the uncontrolled diabetes mellitus type 2, treated with Lantus and insulin sliding scale. Patient is being discharged with the Lantus and metformin. Patient was advised to follow up with the primary care physician in 1 week. Patient also had multiple thyroid nodule and advised to follow up with the electronic video games servicer for further evaluation and care. Patient's meds were sent to the pharmacy electronically. Patient was hemodynamically stable on discharge. # Atrial fibrillation with a rapid ventricular rate # Acute chest pain, ruled out acute coronary syndrome # Acute respiratory distress, likely due to HPpEF # uncontrolled diabetes mellitus type 2 with hyperglycemia # pulmonary hypertension # multiple thyroid nodule # osteoarthritis # anxiety # history of chronic narcotic dependence # med nonadherence PLAN Eliquis 10 mg p.o. b.i.d. for seven days, Followed by Eliquis 5 mg p.o. daily Metoprolol ER 25 mg p.o. daily Insulin Lantus 15 units subQ h Q a.m. Metformin 500 mg p.o. b.i.d. Atorvastatin 40 mg q.h.s. Resume other home medications Please follow up with the primary physician in 1-2 weeks Please follow up with the corporate travel coordinator in 1-2 weeks for Please follow up with your electronic video games servicer for multiple thyroid nodules Please be adherent with the medications and treatment plan Consults/Reason for consult Patient Name: ENRIQUETA PANTOJA Acct: [id number] Room: [facility] /Bed: Attending Physician: TONY GRIFFITH RESIDENT Loc: TELE-CENTR Unit: [id number] CONSULTATION REPORT . ................................................................................ ............................................................................... Date Seen: Jan 20, 2025 Referring Physician MD Sergey Reason for Consultation Chest pain, SOB, A-fib History of Present Illness This is a 74-year-old man who presented to the emergency room with multiple complaints. The patient is a poor historian. States he is from [facility] and is here visiting his friends. Complains of bilateral knee pain, bilateral shoulder blade pain, and lower back pain for unknown amount of time. States he had some issues refilling his Oxycodone therapy at the pharmacy. Denies chest pain, palpitations, diaphoresis, SOB, or syncopal events. Complains of some dizziness, not positional. He underwent a twelve lead electrocardiogram revealing an atrial fibrillation rhythm with rapid ventricular rate. Per patient, he was told in the past he had "an irregular heartbeat" undergoing a non-ischemic stress test at [facility] in [facility] approximately three years ago. At that time, he was also advised to undergo an event monitor but somehow the patient failed to follow up. States he only takes pain medications at home despite being diagnosed with other illnesses in the past. He prefers to start a more natural way in the near future. Significant medical history includes [id number] diabetes mellitus, dyslipidemia, thyroid disease, chronic pain syndrome with narcotic dependence, anxiety, and obesity. Past Medical History Past medical history reviewed. No other significant than mentioned above. Past Surgical History Left carpal tunnel Right elbow x2 Family History: Diabetes mellitus G8 FATHER Hypertension G8 MOTHER Family History Family history reviewed. Social History Denies the use of illicit drugs, alcohol, or tobacco use. Allergies: Coded Allergies: NO KNOWN ALLERGIES (Unverified , 01/13/25) Home Meds Active Scripts Naloxone HCl (Narcan) 4 Mg/0.1 Ml Spr, 4 MG NA AWNING ASSEMBLER, #2 SPRAY Prov:LUIS PETERSON MD 01/16/25 Oxycodone Hcl (OxyCONTIN ER Tablet) 20 Mg Tb, 1 TAB PO BID PRN, #14 TAB Prov:LUIS PETERSON MD 01/16/25 Reported Medications Atorvastatin Calcium (ATORVASTATIN CALCIUM) 20 Mg Tab, 1 TAB PO DAILY for 90 Days, #90 01/20/25 Metformin Hydrochloride (Metformin Hcl) 500 Mg Tab, 1 TAB PO BID for 90 Days, #180 01/20/25 Dapagliflozin Propanediol (Farxiga) 10 Mg Tab, 5 MG PO DAILY, TAB 01/13/25 Alprazolam (Xanax) 2 Mg Tab, 1 TAB PO DAILY for 30 Days 01/13/25 Discontinued Reported Medications Oxycodone Hcl (OXYCODONE HCL) 5 Mg Tb, 30 MG PO, TAB 01/13/25 Home Meds Home medications reviewed. Current Medications Current Medications Medications (Trade) Dose Ordered Sig/Renetta Route PRN Reason Start Time Stop Time Status Last Admin Amiodarone HCL/ Dextrose 200 ml @ 16.66 mls/ hr Q12H IV 01/19/25 18:30 01/20/25 06:07 Enoxaparin Sodium (Lovenox) 100 mg Q12HR SC 01/19/25 19:17 01/20/25 10:53 Sodium Chloride (Saline Lock Ns) 10 ml Q8HR IV 01/19/25 22:00 01/20/25 13:45 Docusate Sodium (Colace Capsule) 100 mg BIDPRN PRN PO FOR CONSTIPATION 01/19/25 19:00 Acetaminophen (Tylenol Tablet) 650 mg Q6HP PRN PO PAIN SCALE 1-3 OR TEMP>100.4 01/19/25 19:00 Acetaminophen/ Hydrocodone Bitart ([place] 5/325MG Tab) 1 tab Q4HP PRN PO MODERATE PAIN (4-6 PAIN SCALE) 01/19/25 19:00 01/19/25 21:26 Ondansetron HCl (Zofran) 4 mg Q4HP PRN IV NAUSEA / VOMITING 01/19/25 19:00 Nitroglycerin (Ntrostat Sublingual) 0.4 mg Q5MINP PRN SL FOR CHEST PAIN 01/19/25 19:00 Morphine Sulfate 2 mg Q30M PRN IV FOR CHEST PAIN 01/19/25 19:00 Diagnostic Test (Pha) (Accu-Chek Comfort Curve T) 1 strip ACHS 01/19/25 22:00 01/20/25 09:04 DC 01/20/25 06:35 Insulin Human Regular (InsuLIN R) ACHS SC 01/19/25 22:00 01/20/25 09:04 DC 01/20/25 06:31 Dextrose 50 ml UD PRN IV Blood Sugar LESS THAN 60 01/19/25 19:00 01/20/25 09:04 DC Patient Own Medication 5 mg DAILY PO 01/20/25 10:00 Diagnostic Test (Pha) (Accu-Chek Comfort Curve T) 1 strip ACHS 01/20/25 11:30 01/20/25 11:02 Insulin Human Regular (InsuLIN R) HS SC 01/20/25 22:00 Insulin Human Regular (InsuLIN R) AC SC 01/20/25 11:30 01/20/25 11:03 Dextrose 50 ml UD PRN IV Blood Sugar LESS THAN 60 01/20/25 09:15 Pantoprazole Sodium (Protonix Tablet) 40 mg DAILY@0600 PO 01/20/25 10:45 01/20/25 11:36 Insulin Glargine (Lantus) 15 units DAILY@1000 SC 01/20/25 11:30 01/20/25 13:09 Review of Systems Constitutional: No symptom reported Ears, Nose, & Throat: No symptom reported Eyes: No symptom reported Neurological: No symptoms reported Pulmonary/Respiratory: No symptom reported Cardiovascular: No symptom reported Gastrointestinal: No symptom reported Genitourinary: No symptom reported Musculoskeletal: Bilateral knee pain, bilateral clavicular pain, lower back pain Skin: No symptom reported Psychiatric: No symptom reported Endocrine: No symptom reported Hemotologic/Lymphatic: No symptom reported Vital Signs Vital Signs Date Time Temp Pulse Resp B/P (MAP) Pulse Ox O2 Delivery O2 Flow Rate FiO2 01/20/25 12:00 100 01/20/25 12:00 18 126/69 (88) 97 01/20/25 10:00 97.7 97.7 01/20/25 09:30 Room Air* 0 21 Physical Exam General Appearance: Cooperative. In no acute distress. Obese Head Exam: Normal inspection Neck Exam: Normal inspection. Non-tender. Normal alignment Pulmonary/Respiratory: Chest non-tender. Clear bilateral breath sounds Cardiovascular/Chest: Irregularly irregular rate and rhythm. A-fib controlled rate. No murmurs. No JVD. Peripheral Pulses: 2+ Radial (R). 2+ Radial (L). 2+ Pedal (R). 2+ Pedal (L) Abdominal Exam: Normal bowel sounds. Soft. Nontender. No hepatospenomegaly. No masses Ankle Exam: Negative ankle edema Lower extremities: Negative lower extremity edema Neuro/Mental Status: A&O x3. Very poor historian, rambling thoughts Thoughts/Psych: Normal thought pattern. Fidgety Appearance: In no acute distress Skin Exam: Normal inspection. Normal color. Warm. Dry Labs/Diagnostic Data Labs Test 01/20/25 12:59 01/20/25 12:48 01/20/25 10:30 01/20/25 03:14 Range/Units Beta-Hydroxybutyric Acid 0.227 < 0.4 mmol/L POC Glucose 243 H 70-106 mg/dl Influenza Type A Antigen Negative Negative Influenza Type B Antigen Negative Negative SARS-CoV-2 Antigen (Rapid) Negative NEGATIVE White Blood Count 9.6 4.4-10.8 10^3/uL Red Blood Count 5.33 4.5-5.90 10^6/uL Hemoglobin 15.9 13.5-17.5 g/dL Hematocrit 46.0 41.0-53.0 % Mean Corpuscular Volume 86.3 80.0-100.0 fL Mean Corpuscular Hemoglobin 29.9 28.0-32.0 pg Mean Corpuscular Hemoglobin Concent 34.6 32.0-36.0 g/dL Red Cell Distribution Width 14.4 H 11.8-14.3 % Platelet Count 197 140-450 10^3/uL Mean Platelet Volume 8.8 6.9-10.8 fL Neutrophils (%) (Auto) 66.8 37.0-80.0 % Lymphocytes (%) (Auto) 24.4 10.0-50.0 % Monocytes (%) (Auto) 7.8 0.0-12.0 % Eosinophils (%) (Auto) 0.4 0.0-7.0 % Basophils (%) (Auto) 0.6 0.0-2.0 % Neutrophils # (Auto) 6.4 1.6-8.6 10 ^3/uL Lymphocytes # (Auto) 2.3 0.4-5.4 10 ^3/uL Monocytes # (Auto) 0.7 0-1.3 10 ^3/uL Eosinophils # (Auto) 0 0-0.8 10 ^3/uL Basophils # (Auto) 0.1 0-0.2 10 ^3/uL Nucleated Red Blood Cells 0.1 % Sodium Level 139 136-145 mmol/L Potassium Level 4.1 3.5-5.1 mmol/L Chloride Level 103 98-107 mmol/L Carbon Dioxide Level 27 20-31 mmol/L Anion Gap 9 5-15 Blood Urea Nitrogen 16 9-23 mg/dL Creatinine 1.12 0.700-1.30 mg/dL Glomerular Filtration Rate Calc 69 >90 mL/min BUN/Creatinine Ratio 14.3 10.0-20.0 Serum Glucose 267 H 74-106 mg/dL Calcium Level 9.0 8.7-10.4 mg/dL Magnesium Level 2.1 1.6-2.6 mg/dL Total Bilirubin 0.6 0.2-1.0 mg/dL Aspartate Amino Transferase (AST) 34 13-40 U/L Alanine Aminotransferase (ALT) 24 7-40 U/L Alkaline Phosphatase 71 46-116 U/L B-Type Natriuretic Peptide 77.90 0-100 pg/mL Total Protein 7.0 5.7-8.2 g/dL Albumin 4.0 3.2-4.8 g/dL Vitamin B12 Level 685 211-911 pg/mL Vitamin D 25-Hydroxy 30.1 30.0-100 ng/mL Folic Acid 16.20 >5.38 ng/mL Test 01/19/25 13:54 Range/Units Troponin I High Sensitivity 19 </=54 ng/L Thyroid Stimulating Hormone (TSH) 0.63 0.55-4.78 uIU/mL Free Thyroxine (T4) Calculated 1.03 0.89-1.76 ng/dL Assessment Atrial fibrillation with rapid ventricular rate, likely Stage IIIb Chronic pain syndrome with drug-seeking behavior Roa-cgtzwuj-yfxenpgfo diabetes mellitus, uncontrolled HgbA1C >12% Thyroid disease Dyslipidemia Medical noncompliance Obesity Plan/Recommendation (Dr. Cohen) Transthoracic echocardiogram revealed LVEF 60% with biatrial enlargement and RV enlarged with normal function. The patient presents with atrial fibrillation with rapid ventricular rate, now at a controlled rate. Initiate rate control with beta-anupam, uptitrate as tolerated. Avoid antiarrhythmic therapy given likely stage IIIb after reviewing twelve-lead ECGs from this admission and previous admission. Continue therapeutic Lovenox and transition to DOAC therapy prior to discharge ([id number] Score 3 points, HAS-BLED Score 1 point). Thyroid US results per primary care team. Continue tight glycemic control. Obtain UDS rule out acute toxicity. Initiate IVF. Monitor ECG changes closely and notify accordingly. Further orders per clinical course. Thank you for allowing us to participate in this patient's care. Please call if you have any questions or concerns. Critical care time: 40 min. This medical document was created using an electronic medical record system with voice recognition software and computerized dictation system. Although this document has been carefully reviewed, there might still be some phonetic and typographical errors. Occasional wrong-word or ``sound-alike substitutions may have occurred due to the inherent limitations of voice recognition software. These areas are purely typographical due to imperfections of the software programs and do not reflect any compromise in the patient's medical care. Please read the chart carefully and recognize, using context, where these substitutions have occurred. Plan discussed with: Patient, Other NYHA 2 Physical activity limitations: NA Date of Service: Jan 20, 2025 Billing Provider: GUNNAR RAYA Cardiology Common Codes: 78366-UBIYBTMC CARE 30-74 MIN GUNNAR RAYA Jan 20, 2025 14:05 DICTATED BY:GUNNAR RAYA DICTATED DATE/TIME:01/20/25 1405 ELECTRONICALLY SIGNED BY:GUNNAR RAYA 01/20/25 1516 ELECTRONICALLY CO-SIGNED BY:DARIN COHEN MD01/21/25 1505 Operations or Procedures [place] [id number] Ph: [phone] DIAGNOSTIC IMAGING Diagnostic Imaging Report : [id number] Signed PATIENT: ENRIQUETA PANTOJAACCT: [id number] UNIT: [id number] : 1950 LOC: OVERFLOW ROOM / BED: [address] [place] [address] AGE / SEX: 74 / M ADM STATUS: ADM IN SERVICE 185 ORDERING PHYSICIAN: ALEXANDER HILL MD PROCEDURE(s): ECIDC - ECHO 2D MODE CARDIAC DOP REASON: Arrhythmia rule out structural heart disease ORDER NUMBER(s): [id number], ACCESSION NUMBER(s): [id number] APPROVED REPORT EXAM: Two-dimensional and M-mode echocardiogram with Doppler and color Doppler. Blood Pressure: 135/69 mmHg INDICATION Arrhythmia rule out structural heart disease RISK FACTORS Height: 71, Weight: 222 DIMENSIONS LVDd (3.8-5.7cm) LA (2D) 4.8 (1.9-4.0cm) Aortic Root 3.4 (2.0- 3.7cm) LVDs (2.5-4.0cm) LA (MM) (1.9-4.0cm) Aortic Cusp Exc 1.6 (1.5- 2.0cm) EF (%) 52.0 (55-70%) Rt. Atrium 4.7 (1.9-4.0cm) Asc. Aorta cm Mitral Valve Mitral Mitral Stenosis E wave 1.13m/s MV Mean GR. mmHg A wave m/s MV Peak GR. 45mmHg E/A ratio 0.0 2D MVA cm2 Aortic Valve Aortic Valve Aortic Stenosis V1 0.79m/s AO Mean GR. 2mmHg V2 1.00m/s AO Peak GR. 4mmHg LVOT Diameter 2.3 (1.8-2.4cm) Doppler MELISSA 3.28cm2 Pulmonic Valve V2 0.60m/s Tricuspid Valve TR Velocity 3.04m/s RVSP 45mmHg Other Information Technically limited study due to body habitus and patient position. Conclusion lvef 60% RV enlarged, normal function biatrial enlargement no severe valve abnormalities noted mild mitral regurg SIGNED BY: DARIN COHEN MD SIGNED DATE/TIME: 01/20/25 1228 CC: [place] [id number] Ph: [phone] DIAGNOSTIC IMAGING Diagnostic Imaging Report : [id number] Signed PATIENT: ENRIQUETA PANTOJAACCT: [id number] UNIT: [id number] : 1950 LOC: ER ROOM / BED: / AGE / SEX: 74 / M ADM STATUS: REG ER SERVICE 1050 ORDERING PHYSICIAN: JI BERG MD PROCEDURE(s): CXRP - CHEST PORTABLE REASON: sob ORDER NUMBER(s): [id number], ACCESSION NUMBER(s): [id number] XY CHEST PORTABLE, HISTORY: sob COMPARISON: XY CHEST PORTABLE on DOS: 01/13/25 XY CHEST PORTABLE on DOS: 01/13/25 TECHNICAL DATA: 1 view of the chest was obtained. FINDINGS: Lines and tubes: None Cardiomediastinal silhouette: normal Pulmonary vasculature: normal Lung expansion: normal Lung airspace: normal Lung interstitium: normal Pleura: normal Pneumothorax: no Bones: Unremarkable Other: no IMPRESSION: No acute intrathoracic abnormality. ATED BY: CADEN ROMAN MD DICTATED DATE/TIME: 01/19/251131 SIGNED BY: CADEN ROMAN MD SIGNED DATE/TIME: 01/19/251131 CC: [place] [id number] Ph: [phone] DIAGNOSTIC IMAGING Diagnostic Imaging Report : [id number] Signed PATIENT: ENRIQUETA PANTOJAACCT: [id number] UNIT: [id number] : 1950 LOC: OVERFLOW ROOM / BED: [address] [place] [address] AGE / SEX: 74 / M ADM STATUS: ADM IN SERVICE 8 ORDERING PHYSICIAN: TONY GRIFFITH RESIDENT PROCEDURE(s): THYDU - THYROID REASON: Suspected thyroid nodule/malignancy ORDER NUMBER(s): [id number], ACCESSION NUMBER(s): [id number] ULTRASOUND SOFT TISSUE HEAD AND NECK CLINICAL INDICATION: Suspected thyroid nodule/malignancy TECHNIQUE: Multiple real time sonographic images of the thyroid were obtained. Comparison: None FINDINGS: The right thyroid gland measures 5.4 x 1.7 x 1.4 cm. The left thyroid gland measures approximately 7.2 x 5.5 x 4.0 cm. The isthmus measures 0.6 cm.. Mixed cystic and solid TR 3 nodule in the left lower pole measures 5.3 cm. Mixed cystic and solid nodule in the right midpole measures 1.4 cm, TR 3. Hypoechoic nodule in the left upper thyroid measures 2.4 cm, TR 4. IMPRESSION: Mixed cystic and solid TR 3 nodule in the left lower pole measures 5.3 cm. Mixed cystic and solid nodule in the right midpole measures 1.4 cm, TR 3. Hypoechoic nodule in the left upper thyroid measures 2.4 cm, TR 4. [employer] TI-RADS Categories and Recommendations (2017): TR1: 0 points, Benign, No FNA TR2: 2 points, Not suspicious, No FNA TR3: 3 points, Mildly suspicious, FNA if > or = 2.5 cm, Follow if > or = 1.5 cm TR4: 4-6 points, Moderately Suspicious, FNA if > or = 1.5 cm, Follow if > or = 1.0 cm TR5: 7+ points, Highly Suspicious, FNA if > or = 1.0 cm, Follow if > or = 0.5 cm Follow-up ultrasound guidelines: TR5: yearly for 5 years, if no growth or change in TI-RADS level TR4: at 1, 2, 3 and 5 years, if no growth or change in TI-RADS level TR3: at 1, 3 and 5 years, if no growth or change in TI-RADS level If increased but below threshold for FNA, repeat in one year. Source: ACR Thyroid Imaging, Reporting and Data System (TI-RADS): White Paper of the ACR TI-RADS Committee. Tesler et al., J Am Isabell Radiol 2017;14:587-595. ATED BY: JHOAN HUNG MD DICTATED DATE/TIME: 01/20/25 104 SIGNED BY: JHOAN HUNG MD SIGNED DATE/TIME: 01/20/25 104 CC: [place] [id number] Ph: [phone] DIAGNOSTIC IMAGING Diagnostic Imaging Report : [id number] Signed PATIENT: ENRIQUETA PANTOJAACCT: [id number] UNIT: [id number] : 1950 LOC: TELE-CENTR ROOM / BED: [facility] / B AGE / SEX: 74 / M ADM STATUS: ADM IN SERVICE 1401 ORDERING PHYSICIAN: GUNNAR RAYA JACKSCREW WORKER PROCEDURE(s): HWOCT - HEAD WITHOUT CONTRAST REASON: Dizziness with new onset a-fib ORDER NUMBER(s): [id number], ACCESSION NUMBER(s): [id number] CLINICAL HISTORY: Dizziness with new onset a-fib TECHNIQUE: Helical scanning was performed of the head from the skull base to the vertex. Multiplanar reconstructions were performed. This exam was performed according to our departmental dose optimization program. Up-to-date CT equipment and radiation dose reduction techniques are utilized as appropriate. CTDI 59.3 DLP 166.4 COMPARISON: None FINDINGS: There is no evidence for acute intracranial hemorrhage, acute ischemic changes, mass, mass effect, or extra-axial fluid collection. There is no hydrocephalus or midline shift. There is no effacement of the cerebral sulci and basal subarachnoid cisterns. The arthur-white matter differentiation is well maintained. There is mild brain volume loss. They always say The imaged paranasal sinuses are clear. IMPRESSION: NO ACUTE INTRACRANIAL ABNORMALITY SEEN. ATED BY: RENY LUNA MD DICTATED DATE/TIME: 01/20/251456 SIGNED BY: RENY LUNA MD SIGNED DATE/TIME: 01/20/251456 CC: Condition at Discharge: Stable Final Diagnosis/Problems List # Atrial fibrillation with a rapid ventricular rate # Acute chest pain, ruled out acute coronary syndrome # Acute respiratory distress, likely due to HPpEF # uncontrolled diabetes mellitus type 2 with hyperglycemia # pulmonary hypertension # multiple thyroid nodule # osteoarthritis # anxiety # history of chronic narcotic dependence # med nonadherence Discharge Disposition: Home Discharge Instruct/Medications Follow Up/Referral: As above Medications: As above Scheduled Alprazolam (Xanax), 1 TAB PO DAILY, (Reported) Apixaban Base (Eliquis), 10 MG PO BID Apixaban Base (Eliquis), 5 MG PO BID Atorvastatin Calcium (Atorvastatin Calcium), 1 TAB PO DAILY, (Reported) Atorvastatin Calcium (Atorvastatin Calcium), 1 TAB PO DAILY Dapagliflozin Propanediol (Farxiga), 5 MG PO DAILY, (Reported) Insulin Glargine (Lantus), 15 UNIT SC DAILY Metformin Hydrochloride (Metformin Hcl), 1 TAB PO BID, (Reported) Metformin Hydrochloride (Metformin Hcl), 1 TAB PO BID Naloxone HCl (Narcan), 4 MG NA [employer] Pantoprazole Sodium Sesquihydr (Pantoprazole Sodium), 20 MG PO DAILY Scheduled PRN Oxycodone Hcl (OxyCONTIN ER Tablet), 1 TAB PO BID PRN Discontinued Medications Oxycodone Hcl (Oxycodone Hcl), 30 MG PO, (Reported) Discharge Statement: "Patient was advised to return to the ER or call 911 if any headaches, dizziness, shortness of breath, chest pain, abdominal pain, bleeding, fevers, or worsening of medical condition. Patient was counseled about treatment plan, medications, possible side effects, patientverbalized understanding. All questions were answered to the best of my ability. This discharge took greater then 30 minutes in planning, reviewing documentation, counseling the patient, and discussing with other team members." ASSESSMENT ASSESSMENT Assessment Date of Service: Jan 21, 2025 Billing Provider: ALAN DEL TORO MD Common Visit Codes: 28715-CYY/OBS DISCH DAY >30min TONY GRIFFITH Jan 21, 2025 13:05 ALAN DEL TORO MD Jan 22, 2025 17:06
[2025-01-21] MEDS ORDERED: APIX5TAB PO (13:10)
[2025-01-21] MEDS ORDERED: PANT40T PO (13:10)
[2025-01-21] MEDS ORDERED: INSLANTI SC (13:11)
[2025-01-21] MEDS ORDERED: METF-370 PO (13:11)
[2025-01-21] MEDS ORDERED: ATOR40TA52 PO (13:13)
[2025-01-21 17:00] VITALS: BP 129/66; PULSE 81; RESP 17; TEMP 97.8; O2SAT 98
[2025-01-21] MEDS ORDERED: ATORVASTATIN 20 MG TAB PO SCH (22:00)
--- NOTE | 2025-01-23 14:13 | ECG ---
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
== END 2025-01-21 17:58 | disposition home or self-care (01) | DRG 291 ==
LOC: ER 10:29 → OVERFLOW 18:59 → TELE-CENTR 01-20 13:33
PROVIDERS: ADMIT Student in an Organized Health Care Education/Training Program; ATTEND Student in an Organized Health Care Education/Training Program
DX: I11.0 Hypertensive heart disease with heart failure (principal); I50.31 Acute diastolic (congestive) heart failure; I48.91 Unspecified atrial fibrillation; E78.5 Hyperlipidemia, unspecified; E66.9 Obesity, unspecified; E07.9 Disorder of thyroid, unspecified; I27.20 Pulmonary hypertension, unspecified; E11.9 Type 2 diabetes mellitus without complications; G89.4 Chronic pain syndrome; F41.9 Anxiety disorder, unspecified; E11.65 Type 2 diabetes mellitus with hyperglycemia; E04.1 Nontoxic single thyroid nodule; Z87.442 Personal history of urinary calculi; Z76.5 Malingerer [conscious simulation]; Z79.899 Other long term (current) drug therapy; Z79.84 Long term (current) use of oral hypoglycemic drugs; Z83.3 Family history of diabetes mellitus; Z91.199 Patient's noncompliance with other medical treatment and regimen due to unspecified reason; Z82.49 Family history of ischemic heart disease and other diseases of the circulatory system; Z91.148 Patient's other noncompliance with medication regimen for other reason; Z68.29 Body mass index [BMI] 29.0-29.9, adult; M19.09 Primary osteoarthritis, other specified site
CPT/HCPCS: 36415; 70450; 71045; 76536; 80048; 80053; 80061; 80307; 81001; 82010; 82306; 82607; 82746; 82962; 83735; 83880; 84439; 84443; 84484; 85025; 87426; 87804; 93005; 93306; 94640; 96365; 96375; 99291; G0378; J1815; J2405

== ENCOUNTER 2025-02-06 11:06 | Emergency (ER) | payer BC ==
[~2025-02-06] VITALS: Ht 188 cm; Wt 108.7 kg
[~2025-02-06 11:06] MED LIST changes: +APIX5TAB PO; +ATOR40TA52 PO; +INSLANTI SC; +PANT40T PO
--- NOTE | 2025-02-06 12:19 | DVH ---
Exam: CT CT AB PEL WO CON-NO ORAL OR IV History: constipation Comparison Study: None Technique: Multidetector spiral CT of the abdomen was performed from lung bases to pubic symphysis. I maging was performed without IV contrast. Axial, coronal and sagittal multiplanar reformats were obta ined from the axial data set by the technologist. Radiation Dose : 1. Abdomen/Pelvis: CTDIvol 22.8 mGy, DLP 1256 mGy*cm. Findings: Evaluation of solid organs is limited due to lack of intravenous contrast use. Lung Bases: Dependent atelectasis is present. Normal heart size. No pleural or pericardial effusion. Liver: The liver is normal in size. No focal lesions. Gallbladder and Biliary Tree: Unremarkable. Spleen: Unremarkable. Pancreas: The pancreas is grossly normal in appearance. Adrenal Glands: Unremarkable. Kidneys: Kidneys are grossly normal without calculi or hydronephrosis. Bladder: Grossly unremarkable for degree of distention. Bowel: The stomach is grossly normal in appearance. Small bowel and colon are normal in caliber and d istribution, with large volume colonic stool. The appendix is not visualized; however, no secondary f indings of acute appendicitis identified. Ascites: Absent. Lymphadenopathy: No mesenteric, retroperitoneal or periportal lymphadenopathy. Abdominal Wall and Mesentery: Unremarkable. Vasculature: Coronary artery calcifications are noted. The visualized abdominal aorta is normal in si ze and caliber. Evaluation of abdominal and pelvic vessels is limited due to lack of intravenous cont rast. Pelvic Organs: Unremarkable. Musculoskeletal: Multilevel degenerative changes of the spine. Degenerative changes of bilateral hips . No aggressive focal bony lesions, acute fractures or dislocation. IMPRESSION: No acute abdominal or pelvic findings. Large volume colonic stool. Radiation optimization: All CT scans at this facility use at least one of these dose optimization karishma hniques: automated exposure control mA and/or kV adjustment per patient size (includes targeted exam s where dose is matched to clinical indication) or iterative reconstruction.
[2025-02-06 12:23] LABS: Hematocrit 48.6 % (41.0-53.0); Hemoglobin 16.4 g/dL (13.5-17.5); Mean Corpuscular Hemoglobin 28.7 pg (28.0-32.0); Mean Corpuscular Volume 85.3 fL (80.0-100.0); Nucleated Red Blood Cells % 0.1 %
--- NOTE | 2025-02-06 12:28 | ED.PDOC ---
GI ASSESSMENT HPI Comments 74-year-old male who presents to the ED c/c of constipation Patient states he has been having constipation for the past 3 4 days with last bowel movement at that time. Patient states earlier this a.m. he started to have associated abdominal pain Patient states he has tried taking [id number] medications including milk of magnesia but states it has not helped Patient otherwise states he does take oxycodone for his arthritis Patient otherwise denies nausea and vomiting diarrhea fever cough chills dysuria hematuria or any associated symptoms Patient in the ED has a noted blood pressure of 141/73 with otherwise stable vitals including heart rate 94 respiratory rate 16 temperature 97.5? F and O2 saturation of 98% on room air patient was discharged January 21, 2025 [facility] with the following discharge summary: Patient is 74 years old male with past medical history of diabetes mellitus type 2, osteoarthritis, thyroid disease, kidney stone, chronic narcotic dependency, anxiety came with a complaint of chest pain and shortness of breaths. patient was found at the physician parking lot when he was barely talking or walking. Patient was brought to the ER on a wheelchair by hospital staff and found to have atrial fibrillation with rapid ventricular rate. Patient reported he was having chest pain and shortness of breaths for last 4 days after he got discharged from the [facility] recently. Chest pain was intermittent, pressure-like, no radiation, exacerbated with the exertion, relieved with rest. Patient also endorsed shortness of with the exertion. On further inquiry patient also endorsed palpitation for last couple of days. Patient denied any fever, cough, acute joint swelling or redness or diarrhea or dysarthria. At the ER patient was found to have atrial fibrillation with rapid ventricular rate, treated with amiodarone and put on Lovenox. Troponin I negative. Blood sugar 386. Chest x-ray no acute cardiopulmonary disease. Thyroid ultrasound revealed-Mixed cystic and solid TR 3 nodule in the left lower pole measures 5.3 cm.. Mixed cystic and solid nodule in the right midpole measures 1.4 cm, TR 3. Hypoechoic nodule in the left upper thyroid measures 2.4 cm, TR 4. Echo 2D revealed LVEF 60%. SP 45. Bilateral atrial enlargement. RV enlargement. CT head negative for acute intracranial abnormality. Hospital course-dyspnea hospitalization patient was treated with a amiodarone initially for atrial fibrillation with rapid ventricular rate. Patient was seen by supervisor riveting, recommended metoprolol and discontinued amiodarone p.o. patient was on Lovenox initially and then switched to Eliquis on discharge. With the uncontrolled diabetes mellitus type 2, treated with Lantus and insulin sliding scale. Patient is being discharged with the Lantus and metformin. Patient was advised to follow up with the primary care physician in 1 week. Patient also had multiple thyroid nodule and advised to follow up with the oral pathologist for further evaluation and care. Patient's meds were sent to the pharmacy electronically. Patient was hemodynamically stable on discharge. Past Medical history: # Atrial fibrillation with a rapid ventricular rate # Acute chest pain, ruled out acute coronary syndrome # Acute respiratory distress, likely due to HPpEF # uncontrolled diabetes mellitus type 2 with hyperglycemia # pulmonary hypertension # multiple thyroid nodule # osteoarthritis # anxiety # history of chronic narcotic dependence # med nonadherence Past Surgical history: Tonsillectomy, Right-sided chest surgery, bilateral hand surgery, right elbow surgery Medications: Eliquis 10 mg p.o. b.i.d. for seven days, Followed by Eliquis 5 mg p.o. daily Metoprolol ER 25 mg p.o. dailyInsulin Lantus 15 units subQ h Q a.m.Metformin 500 mg p.o. b.i.d.Atorvastatin 40 mg q.h.s.oxycodone ALLERGIES: denies Social history: denies ETOh, denies tobacco use, denies drug use HPI: Poor Historian. REVIEW OF SYSTEMS: CONSTITUTIONAL: Denies acute: fever, diaphoresis, chills, generalized weakness. HEAD: Denies acute: headache, photophobia Eyes: Denies acute: Double vision, vision loss, eye pain, eye discharge. EARS: Denies acute: tinnitus, hearing loss, ear discharge, ear pain, THROAT: Denies acute: sore throat, swelling, difficulty swallowing , pain with swallowing, change in voice. NECK: Denies acute: neck pain, neck swelling, stiff neck. HEART: Denies acute : chest pain, palpitations, LUNGS: Denies acute: SOB, wheezing, cough, hemoptysis ABDOMEN: Denies acute: Nausea, Vomiting, diarrhea, melena , hematemesis, hematochezia SKIN: Denies acute: rash, redness, lesions, itchiness. EXTREMITIES: Denies acute: calf pain, numbness, tingling, weakness, denies pain in extremity. Denies acute: Low back pain. Neuro: Denies acute: focal neurological deficit, motor or sensory focal neurological deficit, tremors, seizure like activity, confusion, dizziness, change in mental status, loss of bowel or bladder function, cauda equina like symptoms. : Denies acute: dysuria, hematuria, flank pain, increase in urinary frequency. PSYCH: Denies acute: hallucination, suicidal ideation, homicidal ideation. PHYSICAL EXAM: General: ----moderate----acute distress, awake and alert. Head: normocephalic, atraumatic. Neck: supple, trachea is midline, no swelling. Throat: Normal phonation. Eyes:, no erythema, no purulent discharge, no proptosis, no icterus. Heart: regular rate, regular rhythm, no significant murmur appreciated. Lungs: no apparent respiratory distress, Able to speak in full sentences. No wheezing, no rhonchi, no crackles. No stridors Clear to auscultation bilaterally. Abdomen: Generalized lower tender to palpation, non distended, soft, no guarding, no rebound, + bowel sounds. Neuro: Awake, Alert, oriented to name, self, situation, follows commands GCS=15. Speech is normal. Skin: no petechia, no purpura, no cyanosis, non-pale, not jaundice. Lower extremities: --no - Pitting edema no deformity, no focal swelling, no calf TTP. Makes eye contact. moves all four extremities. Face: no apparent facial droop. ED COURSE: DISCLAIMER: This medical document was created using an electronic medical record system with voice recognition software and computerized dictation system. Although this document has been carefully reviewed, there might still be some phonetic and typographical errors. Occasional wrong-word or "sound-alike" substitutions may h ave occurred due to the inherent limitations of voice recognition software. These areas are purely typographical due to imperfections of the software programs and do not reflect any compromise in the patient's medical care. Please read the chart carefully and recognize, using context, where these substitutions have occurred. Chief Complaint: Constipation Time Seen by MD: 11:15 Reviewed Notes: Medications, Allergies Allergies: Coded Allergies: NO KNOWN ALLERGIES (Unverified , 01/13/25) Home Meds Active Scripts Atorvastatin Calcium (ATORVASTATIN CALCIUM) 40 Mg Tab, 1 TAB PO DAILY for 30 Days, #30 TAB 1 [facility] Prov[facility] Insulin Glargine (Lantus) 100 Unit/Ml Inj, 15 UNIT SC DAILY for 30 Days, #300 INJ 1 [facility]/25 Metformin Hydrochloride (Metformin Hcl) 500 Mg Tab, 1 TAB PO BID for 30 Days, #60 TAB 1 [facility] 01/21/25 Pantoprazole Sodium Sesquihydr (Pantoprazole Sodium) 40 Mg Tab, 20 MG PO DAILY for 30 Days, #30 TAB Prov[facility] 01/21/25 Apixaban Base (ELIQUIS) 5 Mg Tab, 5 MG PO BID for 90 Days, #180 TAB Prov:[facility] 01/21/25 Apixaban Base (ELIQUIS) 5 Mg Tab, 10 MG PO BID for 7 Days, #14 TAB 10MG BID X 7 DAYS THEN 5MG PO BID FOR AT LEAST 6 MONTHS FOR DVT/PE TREATMENT Prov[facility] 01/21/25 Naloxone HCl (Narcan) 4 Mg/0.1 Ml Spr, 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, #2 SPRAY Prov:LUIS PETERSON MD 01/16/25 Oxycodone Hcl (OxyCONTIN ER Tablet) 20 Mg Tb, 1 TAB PO BID PRN, #14 TAB Prov:LUIS PETERSON MD 01/16/25 Reported Medications Atorvastatin Calcium (ATORVASTATIN CALCIUM) 20 Mg Tab, 1 TAB PO DAILY for 90 Days, #90 01/20/25 Metformin Hydrochloride (Metformin Hcl) 500 Mg Tab, 1 TAB PO BID for 90 Days, #1 80 01/20/25 Dapagliflozin Propanediol (Farxiga) 10 Mg Tab, 5 MG PO DAILY, TAB 01/13/25 Alprazolam (Xanax) 2 Mg Tab, 1 TAB PO DAILY for 30 Days 01/13/25 Information Source: Patient Mode of Arrival: Ambulatory Past Medical History PAST MEDICAL HISTORY: DM, Kidney Stones, Thyroid Surgical History: Tonsillectomy Family History Family History: Reviewed,noncontributory to illness, Unknown Social History Smoker: Non-Smoker Alcohol: Denies ETOH Use Drugs: Denies Drug Use Lives In: Home Was a procedure done? Was a procedure done?: No X-Ray, Labs, Meds, VS Vital Signs Date Time Temp Pulse Resp B/P (MAP) Pulse Ox O2 Delivery O2 Flow Rate FiO2 02/06/25 15:00 91 14 131/65 (87) 95 02/06/25 13:13 16 98 Room Air* 0 21 02/06/25 13:12 97.8 97 16 118/72 (87) 98 97.8 02/06/25 11:11 97.5 94 16 141/73 98 97.5 Lab Test 02/06/25 15:58 02/06/25 15:42 02/06/25 12:06 Range/Units POC Glucose 303 H 70-106 mg/dl Urine Color Light-yellow Yellow Urine Clarity Clear Clear Urine pH 6.0 5.0-9.0 Urine Specific Bogart 1.042 H 1.001-1.035 Urine Protein Negative Negative Urine Ketones 1+ H Negative Urine Blood Negative Negative /uL Urine Nitrite Negative Negative Urine Bilirubin Negative Negative Urine Urobilinogen Normal Negative mg/dL Urine Leukocyte Esterase Negative Negative /uL Urine RBC 1 0 - 3 /hpf Urine Microscopic WBC 1 0-3 /HPF Urine Squamous Epithelial Cells None seen <5 /hpf Urine Bacteria None seen None Seen /hpf Urine Glucose 4+ H Normal mg/dL White Blood Count 10.7 4.4-10.8 10^3/uL Red Blood Count 5.70 4.5-5.90 10^6/uL Hemoglobin 16.4 13.5-17.5 g/dL Hematocrit 48.6 41.0-53.0 % Mean Corpuscular Volume 85.3 80.0-100.0 fL Mean Corpuscular Hemoglobin 28.7 28.0-32.0 pg Mean Corpuscular Hemoglobin Concent 33.7 32.0-36.0 g/dL Red Cell Distribution Width 14.8 H 11.8-14.3 % Platelet Count 209 140-450 10^3/uL Mean Platelet Volume 8.3 6.9-10.8 fL Neutrophils (%) (Auto) 74.9 37.0-80.0 % Lymphocytes (%) (Auto) 16.9 10.0-50.0 % Monocytes (%) (Auto) 6.7 0.0-12.0 % Eosinophils (%) (Auto) 1.1 0.0-7.0 % Basophils (%) (Auto) 0.4 0.0-2.0 % Neutrophils # (Auto) 8.0 1.6-8.6 10 ^3/uL Lymphocytes # (Auto) 1.8 0.4-5.4 10 ^3/uL Monocytes # (Auto) 0.7 0-1.3 10 ^3/uL Eosinophils # (Auto) 0.1 0-0.8 10 ^3/uL Basophils # (Auto) 0 0-0.2 10 ^3/uL Nucleated Red Blood Cells 0.1 % Sodium Level 135 L 136-145 mmol/L Potassium Level 4.4 3.5-5.1 mmol/L Chloride Level 98 98-107 mmol/L Carbon Dioxide Level 30 20-31 mmol/L Anion Gap 7 5-15 Blood Urea Nitrogen 26 H 9-23 mg/dL Creatinine 1.00 0.700-1.30 mg/dL Glomerular Filtration Rate Calc 78 >90 mL/min BUN/Creatinine Ratio 26.0 H 10.0-20.0 Serum Glucose 300 H 74-106 mg/dL Lactic Acid Level 1.7 0.4-2.0 mmol/L Calcium Level 9.3 8.7-10.4 mg/dL Total Bilirubin 0.5 0.2-1.0 mg/dL Aspartate Amino Transferase (AST) 39 13-40 U/L Alanine Aminotransferase (ALT) 48 H 7-40 U/L Alkaline Phosphatase 93 46-116 U/L Total Protein 7.3 5.7-8.2 g/dL Albumin 4.2 3.2-4.8 g/dL Current Medications Medications (Trade) Dose Ordered Sig/Renetta Route Start Time Stop Time Status Last Admin Polyethylene Glycol/ Electrolytes (Golytely) 1 kit ONCE ONCE PO 02/06/25 12:30 02/06/25 14:03 DC 02/06/25 15:[address] [address] Ph: [phone] DIAGNOSTIC IMAGING Diagnostic Imaging Report : [id number] Signed PATIENT: ENRIQUETA LEVIENRIQUETA LEVIACCT: [id number] UNIT: [id number] : 1950 LOC: ER ROOM / BED: / AGE / SEX: 74 / M ADM STATUS: REG ER SERVICE 1118 ORDERING PHYSICIAN: DAVID LUO DO PROCEDURE(s): ABPL - CT AB PEL WO CON-NO ORAL OR IV REASON: constipation ORDER NUMBER(s): [id number], ACCESSION NUMBER(s): [id number] Exam: CT CT AB PEL WO CON-NO ORAL OR IV History: constipation Comparison Study: None Technique: Multidetector spiral CT of the abdomen was performed from lung bases to pubic symphysis. Imaging was performed without IV contrast. Axial, coronal and sagittal multiplanar reformats were obtained from the axial data set by the technologist. Radiation Dose : 1. Abdomen/Pelvis: CTDIvol 22.8 mGy, DLP 1256 mGy*cm. Findings: Evaluation of solid organs is limited due to lack of intravenous contrast use. Lung Bases: Dependent atelectasis is present. Normal heart size. No pleural or pericardial effusion. Liver: The liver is normal in size. No focal lesions. Gallbladder and Biliary Tree: Unremarkable. Spleen: Unremarkable. Pancreas: The pancreas is grossly normal in appearance. Adrenal Glands: Unremarkable. Kidneys: Kidneys are grossly normal without calculi or hydronephrosis. Bladder: Grossly unremarkable for degree of distention. Bowel: The stomach is grossly normal in appearance. Small bowel and colon are normal in caliber and distribution, with large volume colonic stool. The appendix is not visualized; however, no secondary findings of acute appendicitis identified. Ascites: Absent. Lymphadenopathy: No mesenteric, retroperitoneal or periportal lymphadenopathy. Abdominal Wall and Mesentery: Unremarkable. Vasculature: Coronary artery calcifications are noted. The visualized abdominal aorta is normal in size and caliber. Evaluation of abdominal and pelvic vessels is limited due to lack of intravenous contrast. Pelvic Organs: Unremarkable. Musculoskeletal: Multilevel degenerative changes of the spine. Degenerative changes of bilateral hips. No aggressive focal bony lesions, acute fractures or dislocation. IMPRESSION: No acute abdominal or pelvic findings. Large volume colonic stool. Radiation optimization: All CT scans at this facility use at least one of these dose optimization techniques: automated exposure control mA and/or kV adjustment per patient size (includes targeted exams where dose is matched to clinical indication) or iterative reconstruction. ATED BY: JHOAN HUNG MD DICTATED DATE/TIME: 02/06/251215 SIGNED BY: JHOAN HUNG MD SIGNED DATE/TIME: 02/06/251215 CC: Patient Education/Counseling: Diagnosis, Treatment Family Education/Counseling: No Family Present SEPSIS Sepsis Screen Date sepsis recognized/suspect: Feb 06, 2025 Time Sepsis recognized/suspect: 111 Recent Procedure: No On Antibiotic Therapy: No Respiratory Rate >20: No Heart Rate >90: No Temp<36 C (96.8 F) or >38.3 C: No SBP <90 or MAP <65 mmHG: No New Acute Mental Status Change: No Is the patient on CPAP, BIPAP,: No Physician Orders Ct Ab Pel Wo Con-No Oral Or Iv (02/06/25 11:18) Tap Water Enema (02/06/25 12:27) Vital Signs Date Time Temp Pulse Resp B/P (MAP) Pulse Ox O2 Delivery O2 Flow Rate FiO2 02/06/25 15:00 91 14 131/65 (87) 95 02/06/25 13:13 16 98 Room Air* 0 21 02/06/25 13:12 97.8 97 16 118/72 (87) 98 97.8 02/06/25 11:11 97.5 94 16 141/73 98 97.5 Laboratory Tests Test 02/06/25 12:06 Lactic Acid Level 1.7 mmol/L (0.4-2.0) White Blood Count 10.7 10^3/uL (4.4-10.8) Medications Medications Dose Ordered Sig/Renetta Route Start Time Stop Time Status Last Admin Dose Admin Polyethylene Glycol/ Electrolytes 1 kit ONCE ONCE PO 02/06/25 12:30 02/06/25 14:03 DC 02/06/25 15:17 Departure 1 Departure Time of Disposition: 16:21 Impression: Primary Impression: Constipation Additional Impression: Hyperglycemia due to diabetes mellitus Disposition: HOME / SELF CARE / HOMELESS Condition: Stable Additional Instructions: Additional instructions: Please read all instructions provided in this packet carefully. You MUST follow-up with your primary care/family doctor in 1 to 2 days. If you are unable to see your primary care/family doctor, please return to our emergency room for re-assessment and re-evaluation in 1 to 2 days. Return to the emergency room here in our facility or to the nearest ER [facility] if your symptoms change or worsen. CONSULTATIONS: you MUST Follow-up for consultation as soon as possible with: -gastroenterology in 1-2 days. Please call for appointment. You MUST call the consultants office yourself to make an appointment. You may need to arrange that through your insurance and/or your primary/family doctor. If you are unable to see the marketing operations consultant in 1 to 2 days, you must return to our emergency room (or any other ER of your choice) for re-assessment and re- evaluation. Adequate fluid hydration. Although you have been discharged from the Emergency Department, this does not mean that you have a "clean bill of health". No definitive diagnosis for your symptoms has been made today. It is possible that you are in the process of developing a serious illness. This is why you must return to the ED without fail if any new or worsening symptoms develop. Arterial blood sugar home closely. Increase fiber intake. Finish the GoLYTELY bottle in the next 12 hours. Below is a copy of your radiological report for follow up: \\[place] [address] Ph: [phone] DIAGNOSTIC IMAGING Diagnostic Imaging Report : [id number] Signed PATIENT: ENRIQUETA PANTOJA ACCT: [id number] UNIT: [id number] : 1950 LOC: ER ROOM / BED: / AGE / SEX: 74 / M ADM STATUS: REG ER SERVICE 1118 ORDERING PHYSICIAN: DAVID LUO DO PROCEDURE(s): ABPL - CT AB PEL WO CON-NO ORAL OR IV REASON: constipation ORDER NUMBER(s): [id number], ACCESSION NUMBER(s): [id number] Exam: CT CT AB PEL WO CON-NO ORAL OR IV History: constipation Comparison Study: None Technique: Multidetector spiral CT of the abdomen was performed from lung bases to pubic symphysis. Imaging was performed without IV contrast. Axial, coronal and sagittal multiplanar reformats were obtained from the axial data set by the technologist. Radiation Dose : 1. Abdomen/Pelvis: CTDIvol 22.8 mGy, DLP 1256 mGy*cm. Findings: Evaluation of solid organs is limited due to lack of intravenous contrast use. Lung Bases: Dependent atelectasis is present. Normal heart size. No pleural or pericardial effusion. Liver: The liver is normal in size. No focal lesions. Gallbladder and Biliary Tree: Unremarkable. Spleen: Unremarkable. Pancreas: The pancreas is grossly normal in appearance. Adrenal Glands: Unremarkable. Kidneys: Kidneys are grossly normal without calculi or hydronephrosis. Bladder: Grossly unremarkable for degree of distention. Bowel: The stomach is grossly normal in appearance. Small bowel and colon are normal in caliber and distribution, with large volume colonic stool. The appendix is not visualized; however, no secondary findings of acute appendicitis identified. Ascites: Absent. Lymphadenopathy: No mesenteric, retroperitoneal or periportal lymphadenopathy. Abdominal Wall and Mesentery: Unremarkable. Vasculature: Coronary artery calcifications are noted. The visualized abdominal aorta is normal in size and caliber. Evaluation of abdominal and pelvic vessels is limited due to lack of intravenous contrast. Pelvic Organs: Unremarkable. Musculoskeletal: Multilevel degenerative changes of the spine. Degenerative changes of bilateral hips. No aggressive focal bony lesions, acute fractures or dislocation. IMPRESSION: No acute abdominal or pelvic findings. Large volume colonic stool. Radiation optimization: All CT scans at this facility use at least one of these dose optimization techniques: automated exposure control mA and/or kV adjustment per patient size (includes targeted exams where dose is matched to clinical indication) or iterative reconstruction. ATED BY: JHOAN HUNG MD DICTATED DATE/TIME: 02/06/25 1216 SIGNED BY: JHOAN HUNG MD SIGNED DATE/TIME: 02/06/25 1216 CC: Discharged With: Self Critical Care Note Critical Care Time?: No I personally scribed for DAVID LUO DO ([email or web address]) on 02/06/25 at 12:27. Electronically submitted by Doyle Richard ([email or web address]). I personally scribed for DAVID LUO DO ([email or web address]) on 02/06/25 at 12:47. Electronically submitted by Doyle Richard (ANNA). I personally scribed for DAVID LUO DO ([email or web address]) on 02/06/25 at 16:23. Electronically submitted by Doyle Richard (ANNA). DAVID LUO DO Feb 06, 2025 12:27
[2025-02-06 12:39] LABS: Alanine Aminotransferase 48 U/L (7-40); Albumin 4.2 g/dL (3.2-4.8); Alkaline Phosphatase 93 U/L (46-116); Anion Gap 7 (5-15); BUN/Creatinine Ratio 26.0 (10.0-20.0); Bilirubin, Total 0.5 mg/dL (0.2-1.0); Blood Urea Nitrogen 26 mg/dL (9-23); Calcium 9.3 mg/dL (8.7-10.4); Carbon Dioxide 30 mmol/L (20-31); Chloride 98 mmol/L (98-107); Glucose 300 mg/dL (74-106); Potassium 4.4 mmol/L (3.5-5.1); Sodium 135 mmol/L (136-145); Total Protein 7.3 g/dL (5.7-8.2)
[2025-02-06 13:12] VITALS: TEMP 97.8
[2025-02-06 13:13] VITALS: RESP 16; O2SAT 98
[2025-02-06] MEDS: GOLYTELY 4L KIT PO ONE (15:17)
[2025-02-06 15:55] LABS: Urine Protein, UAD Negative (Negative)
[2025-02-06] MEDS: SODIUM CHLORIDE 0.9% 500 ML IV ONE (16:29)
[2025-02-06 17:00] VITALS: BP 144/87; PULSE 98; RESP 21; O2SAT 98
[2025-02-06] MEDS: InsuLIN REG 1unit/0.01ml Soln (100units/ml) IV ONE (17:23)
== END 2025-02-06 17:40 | disposition home or self-care (01) ==
LOC: ER 11:06
DX: K59.00 Constipation, unspecified (principal); E11.65 Type 2 diabetes mellitus with hyperglycemia; Z90.89 Acquired absence of other organs; Z98.890 Other specified postprocedural states; Z87.442 Personal history of urinary calculi; Z79.84 Long term (current) use of oral hypoglycemic drugs; Z79.4 Long term (current) use of insulin; Z79.01 Long term (current) use of anticoagulants; Z79.899 Other long term (current) drug therapy
CPT/HCPCS: 36415; 74176; 80053; 81001; 82947; 83605; 85025; 96374; 99285; J1815; 82962